=== PATIENT | female | born 1995 | race Caucasian/White ===

== ENCOUNTER → 2018-01-18 14:33 | Outpatient (CLI) | payer MEDICAID, SELFPAY ==
[2018-01-18 14:50] LABS: Add Manual Diff / Slide Review NO; Basophils Percent Auto 0.9 % (0-2); Eosinophils Percent Auto 6.2 % (2-4); Hematocrit 39.3 % (36-46); Hemoglobin 13.6 g/dL (12.0-16.0); Lymphocytes Percent Auto 26.1 % (25-40); Mean Corpuscular HGB Conc 34.7 % (30-36); Mean Corpuscular Hemoglobin 30.9 PG (26-34); Mean Corpuscular Volume 89.2 fL (80-100); Monocytes Percent Auto 7.3 % (3-14); Neutrophils Absolute Auto 8400 /uL (3000-5900); Neutrophils Percent Auto 59.5 % (50-75); Platelet Count 484 X10^3/uL (150-400); Red Cell Distribution Width 13.5 % (11.6-14.8); White Blood Cell Count 14.2 X10^3/uL (4.5-11.0)
[2018-01-18 14:53] LABS: Pregnancy Test Urine Negative (Negative)
[2018-01-18 15:24] LABS: Alanine Aminotransferase 31 IU/L (9-52); Albumin 4.4 g/dL (3.5-5.0); Albumin Globulin Ratio 1.4 (1.0-2.8); Alkaline Phosphatase 70 U/L (38-126); Aspartate Aminotransferase 24 IU/L (14-36); BUN Creatinine Ratio 18.6 (6-22); Bilirubin Total 0.2 mg/dL (0.2-1.3); Blood Urea Nitrogen 13 mg/dL (7-17); Calcium 9.7 mg/dL (8.4-10.2); Carbon Dioxide 28 mmol/L (22-32); Chloride 101 mmol/L (98-107); Cholesterol 202 mg/dL (140-199); Estimated Glomerular Filt Rate > 60.0 mL/min (>60); Globulin 3.1 g/dL (1.7-4.1); Glucose 89 mg/dL (70-100); HDL Cholesterol 62 mg/dL (40-60); HEMOLYSIS 16 (0-50); LDL Cholesterol Calculated 64 mg/dL (<100); Potassium 4.6 mmol/L (3.4-5.1); Sodium 143 mmol/L (137-145); Total Protein 7.5 g/dL (6.3-8.2); Triglycerides 382 mg/dL (35-150)
[2018-01-18 15:56] LABS: Vitamin D 25 Hydroxy (D3) 14.3 ng/mL (30.0-100.0)
[2018-01-18 16:23] LABS: HIV 1 and 2 Antibody NEGATIVE (NEGATIVE)
== END ==
PROVIDERS: PCP Student in an Organized Health Care Education/Training Program; Visit Provider Student in an Organized Health Care Education/Training Program
DX: N91.2 Amenorrhea, unspecified (principal); F11.20 Opioid dependence, uncomplicated; F15.10 Other stimulant abuse, uncomplicated; R79.89 Other specified abnormal findings of blood chemistry; E55.9 Vitamin D deficiency, unspecified; Z13.220 Encounter for screening for lipoid disorders
CPT/HCPCS: 36415; 80053; 80061; 81025; 82306; 85025; 86703

== ENCOUNTER 2018-03-14 18:36 | Emergency (ER) | payer MEDICAID, SELFPAY ==
--- NOTE | 2018-03-14 18:44 | ED.NAVMDI ---
HPI - Nausea/Vomiting/Diarrhea <Cindi Galindo PA-C - Last Filed: 03/14/18 22:20> General Chief complaint: Nausea/Vomiting/Diarrhea Stated complaint: states severe stomach pain N/V/D Time Seen by Provider: 03/14/18 18:43 Source: patient Mode of arrival: ambulatory Limitations: no limitations History of Present Illness HPI Narrative: This 22-year-old female comes in due to abdominal pain and vomiting today. She states that the pain is all across her lower abdomen and for the last couple of hours she has also noted pain in her back, mainly the left flank. She states that she was feeling normal until this morning. She is able to keep down maybe a little bit of water today but no food, and she continues to have nausea. She vomited 4 or 5 times today. She has not had any diarrhea. She denies any fever, chills, or sweats. She denies any urinary symptoms at all. She denies any discharge or STD concerns. She denies any possibility of and is on OCP. She denies any drug use in the last 6 months. 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 Allergy to amoxicillin is noted. She states this was a long time ago and she believes she had hives, however has taken cephalexin/cephalosporins with no reaction Related Data Previous Rx's Medication Instructions Recorded norgestimate 0.25 mg-ethinyl 1 tab PO DAILY #168 tab 01/18/18 estradiol 35 mcg tablet Allergies Allergy/AdvReac Type Severity Reaction Status Date / Time amoxicillin [AMOXICILLIN] Allergy Unknown Verified 03/14/18 18:49 Review of Systems <Cindi Galindo PA-C - Last Filed: 03/14/18 22:20> Review of Systems ROS Unobtainable: All systems reviewed & are unremarkable except as noted in HPI and below PFSH <Cindi Galindo PA-C - Last Filed: 03/14/18 22:20> Comment: Patient reports no tobacco in the last 2 weeks Exam <MARCY Pennington Last Filed: 03/14/18 22:20> Narrative Exam Narrative: GENERAL APPEARANCE: Patient sitting comfortably, in no distress. HEENT: PERRL, EOMI, conjunctiva pink, no scleral icterus, normal oropharynx NECK: Supple LUNGS: Clear to auscultation bilaterally. HEART: Rate and rhythm regular, normal S1 and S2, no S3 or S4. ABDOMEN: Soft, nondistended, hypoactive bowel sounds present x 4 quadrants, no masses palpable, no hepatosplenomegaly. Tender throughout the upper quadrants bilaterally as well as the left flank. Minimal right CVAT. No inferior quadrant tenderness. No guarding or rebound EXTREMITIES: No edema, no calf tenderness DERMATOLOGIC: No jaundice or exanthem NEUROLOGIC: Alert and oriented with normal speech and coordination Initial Vital Signs Initial Vital Signs: Vital Signs Temperature 98.5 F 03/14/18 18:49 Pulse Rate 93 H 03/14/18 18:49 Respiratory Rate 17 03/14/18 18:49 Blood Pressure 139/70 03/14/18 18:49 Pulse Oximetry 100 03/14/18 18:49 <Gerardo Gil MD - Last Filed: 03/15/18 03:45> Initial Vital Signs Initial Vital Signs: Vital Signs Temperature 98.5 F 03/14/18 18:49 Pulse Rate 93 H 03/14/18 18:49 Respiratory Rate 17 03/14/18 18:49 Blood Pressure 139/70 03/14/18 18:49 Pulse Oximetry 100 03/14/18 18:49 Course <Cindi Galindo PA-C - Last Filed: 03/14/18 22:20> Additional Information: On initial exam patient has left flank tenderness and tenderness across the upper quadrants. Pain has changed significantly in location from what she describes at onset. Patient has markedly elevated lipase, amylase, LFTs are chronically elevated but more so tonight. Previously normal bilirubin >2. She has chronic leukocytosis. Pain is significantly improved and she has not had recurrent vomiting while in the department. I have reviewed her lab work and ultrasound findings including very dilated common bile duct at 9.8 mm, and he advises transfer to a center where ERCP is available. Orders Ordered: ED Orders 03/14/18 19:12 Amylase Stat Complete Blood Count AUTO DIFF Stat Comprehensive Metabolic Panel Stat Lipase Stat 03/14/18 19:54 US abdomen complete Stat Discontinued Medications Hydromorphone HCl (Dilaudid) 1 mg IV NOW ONE Stop: 03/14/18 19:56 Last Admin: 03/14/18 20:03 Dose: 1 mg Hydromorphone HCl (Dilaudid) 1 mg IV NOW ONE Stop: 03/14/18 21:13 Last Admin: 03/14/18 21:15 Dose: 1 mg Sodium Chloride (Normal Saline 0.9%) 1,000 mls @ 1,000 mls/hr IV BOLUS ONE Stop: 03/14/18 19:59 Last Infusion: 03/14/18 20:21 Dose: 1,000 mls/hr Admin: 03/14/18 19:12 Dose: 1,000 mls/hr Ceftriaxone Sodium 1,000 mg/ (Dextrose) 50 mls @ 100 mls/hr IV NOW ONE Stop: 03/14/18 19:34 Last Infusion: 03/14/18 21:10 Dose: 0 mls/hr Admin: 03/14/18 20:08 Dose: 100 mls/hr Cefotetan Disodium/Dextrose (Cefotan) 2 gm in 50 mls @ 100 mls/hr IV NOW ONE Stop: 03/14/18 22:26 Last Infusion: 03/14/18 23:03 Dose: 0 mls/hr Admin: 03/14/18 22:17 Dose: 100 mls/hr Sodium Chloride (Normal Saline 0.9%) 1,000 mls @ 100 mls/hr IV CONT DARIO Last Admin: 03/14/18 22:52 Dose: Lactated Ringer's (Lactated Ringers) 1,000 mls @ 150 mls/hr IV CONT DARIO Last Infusion: 03/14/18 23:09 Dose: 0 mls/hr Admin: 03/14/18 23:01 Dose: 150 mls/hr Ketorolac Tromethamine (Toradol) 30 mg IV NOW ONE Stop: 03/14/18 19:01 Last Admin: 03/14/18 19:12 Dose: 30 mg Ondansetron HCl (Zofran) 4 mg IV NOW ONE Stop: 03/14/18 19:01 Last Admin: 03/14/18 19:13 Dose: 4 mg Vital Signs - 8 hr 03/14/18 20:00 03/14/18 21:07 03/14/18 22:28 Temperature Pulse Rate 104 H 108 H 96 H Respiratory Rate 18 20 20 Blood Pressure [Left Arm] 137/66 110/88 138/65 Pulse Oximetry 98 97 98 03/14/18 23:06 Temperature 98.5 F Pulse Rate 72 Respiratory Rate 16 Blood Pressure [Left Arm] 121/66 Pulse Oximetry 98 <Gerardo Gil MD - Last Filed: 03/15/18 03:45> Orders Ordered: ED Orders 03/14/18 19:12 Amylase Stat Complete Blood Count AUTO DIFF Stat Comprehensive Metabolic Panel Stat Lipase Stat 03/14/18 19:54 US abdomen complete Stat Discontinued Medications Hydromorphone HCl (Dilaudid) 1 mg IV NOW ONE Stop: 03/14/18 19:56 Last Admin: 03/14/18 20:03 Dose: 1 mg Hydromorphone HCl (Dilaudid) 1 mg IV NOW ONE Stop: 03/14/18 21:13 Last Admin: 03/14/18 21:15 Dose: 1 mg Sodium Chloride (Normal Saline 0.9%) 1,000 mls @ 1,000 mls/hr IV BOLUS ONE Stop: 03/14/18 19:59 Last Infusion: 03/14/18 20:21 Dose: 1,000 mls/hr Admin: 03/14/18 19:12 Dose: 1,000 mls/hr Ceftriaxone Sodium 1,000 mg/ (Dextrose) 50 mls @ 100 mls/hr IV NOW ONE Stop: 03/14/18 19:34 Last Infusion: 03/14/18 21:10 Dose: 0 mls/hr Admin: 03/14/18 20:08 Dose: 100 mls/hr Cefotetan Disodium/Dextrose (Cefotan) 2 gm in 50 mls @ 100 mls/hr IV NOW ONE Stop: 03/14/18 22:26 Last Infusion: 03/14/18 23:03 Dose: 0 mls/hr Admin: 03/14/18 22:17 Dose: 100 mls/hr Sodium Chloride (Normal Saline 0.9%) 1,000 mls @ 100 mls/hr IV CONT DARIO Last Admin: 03/14/18 22:52 Dose: Lactated Ringer's (Lactated Ringers) 1,000 mls @ 150 mls/hr IV CONT DARIO Last Infusion: 03/14/18 23:09 Dose: 0 mls/hr Admin: 03/14/18 23:01 Dose: 150 mls/hr Ketorolac Tromethamine (Toradol) 30 mg IV NOW ONE Stop: 03/14/18 19:01 Last Admin: 03/14/18 19:12 Dose: 30 mg Ondansetron HCl (Zofran) 4 mg IV NOW ONE Stop: 03/14/18 19:01 Last Admin: 03/14/18 19:13 Dose: 4 mg Vital Signs - 8 hr 03/14/18 20:00 03/14/18 21:07 03/14/18 22:28 Temperature Pulse Rate 104 H 108 H 96 H Respiratory Rate 18 20 20 Blood Pressure [Left Arm] 137/66 110/88 138/65 Pulse Oximetry 98 97 98 03/14/18 23:06 Temperature 98.5 F Pulse Rate 72 Respiratory Rate 16 Blood Pressure [Left Arm] 121/66 Pulse Oximetry 98 MDM - Nausea/Vomiting/Diarrhea <Cindi Galindo PA-C - Last Filed: 03/14/18 22:20> Lab Data Attestation: I reviewed the patient's lab results. Result diagrams: 03/14/18 19:12 03/14/18 19:12 Lab Results 03/14/18 03/14/18 03/14/18 Range/Units 18:40 19:12 19:12 WBC 16.1 H (4.5-11.0) X10^3/uL RBC 4.91 (4.0-5.2) X10^6/uL Hgb 14.3 (12.0-16.0) g/dL Hct 43.7 (36-46) % MCV 89.0 (80-100) fL MCH 29.2 (26-34) PG MCHC 32.8 (30-36) % RDW 13.1 (11.6-14.8) % Plt Count 525 H (150-400) X10^3/uL Neut % (Auto) 77.8 H (50-75) % Lymph % (Auto) 15.6 L (25-40) % [place] % (Auto) 5.3 (3-14) % Eos % (Auto) 0.8 L (2-4) % Baso % (Auto) 0.5 (0-2) % Neut # (Auto) 71294 H (9247-0574) /uL Lymph # (Auto) 2500 (9805-5340) /uL [place] # (Auto) 800 (0-900) /uL Eos # (Auto) 100 (0-450) /uL Baso # (Auto) 100 (0-100) /uL Sodium (137-145) mmol/L Potassium (3.4-5.1) mmol/L Chloride (98-107) mmol/L Carbon Dioxide (22-32) mmol/L BUN (7-17) mg/dL Creatinine (0.52-1.04) mg/dL Estimated GFR (>60) mL/min BUN/Creatinine Ratio (6-22) Glucose (70-100) mg/dL Calcium (8.4-10.2) mg/dL Total Bilirubin (0.2-1.3) mg/dL AST (14-36) IU/L ALT (9-52) IU/L Alkaline Phosphatase (38-126) U/L Total Protein (6.3-8.2) g/dL Albumin (3.5-5.0) g/dL Globulin (1.7-4.1) g/dL Albumin/Globulin Ratio (1.0-2.8) Amylase (30-110) U/L Lipase 54288 H (23-300) U/L Urine RBC 1-5/hpf (0-5/HPF) Urine WBC >100/hpf H (0-5/HPF) Ur Squamous Epith Cells 10-30 /hpf H Amorphous Sediment 1+ Urine Bacteria Many (>30) H (None) Urine Mucus 1+ H (Negative) Ur Culture Indicated? Specimen cultured 03/14/18 03/14/18 Range/Units 19:12 19:12 WBC (4.5-11.0) X10^3/uL RBC (4.0-5.2) X10^6/uL Hgb (12.0-16.0) g/dL Hct (36-46) % MCV (80-100) fL MCH (26-34) PG MCHC (30-36) % RDW (11.6-14.8) % Plt Count (150-400) X10^3/uL Neut % (Auto) (50-75) % Lymph % (Auto) (25-40) % [place] % (Auto) (3-14) % Eos % (Auto) (2-4) % Baso % (Auto) (0-2) % Neut # (Auto) (0643-1314) /uL Lymph # (Auto) (1471-7751) /uL [place] # (Auto) (0-900) /uL Eos # (Auto) (0-450) /uL Baso # (Auto) (0-100) /uL Sodium 139 (137-145) mmol/L Potassium 4.5 (3.4-5.1) mmol/L Chloride 101 (98-107) mmol/L Carbon Dioxide 28 (22-32) mmol/L BUN 15 (7-17) mg/dL Creatinine 0.70 (0.52-1.04) mg/dL Estimated GFR > 60.0 (>60) mL/min BUN/Creatinine Ratio 21.4 (6-22) Glucose 113 H (70-100) mg/dL Calcium 10.1 (8.4-10.2) mg/dL Total Bilirubin 2.3 H (0.2-1.3) mg/dL AST 280 H (14-36) IU/L ALT 734 H (9-52) IU/L Alkaline Phosphatase 239 H (38-126) U/L Total Protein 8.3 H (6.3-8.2) g/dL Albumin 4.4 (3.5-5.0) g/dL Globulin 3.9 (1.7-4.1) g/dL Albumin/Globulin Ratio 1.1 (1.0-2.8) Amylase 7220 H (30-110) U/L Lipase (23-300) U/L Urine RBC (0-5/HPF) Urine WBC (0-5/HPF) Ur Squamous Epith Cells Amorphous Sediment Urine Bacteria (None) Urine Mucus (Negative) Ur Culture Indicated? Point of Care Testing Test Results Negative Urine Dip Bedside Urine Glucose Negative Bedside Urine Bilirubin +++ 4 Bedside Urine Ketone ++ 40 Urine Specific [place] 1.020 Bedside Urine Occult Blood + Bedside Urine pH 6.5 Bedside Urine Protein +++ 300 Bedside Urine Urobilinogen 2+ 4mg Bedside Urine Nitrite + Positive Bedside Urine Leukocytes +++ 500 Esterase Imaging Data US - abdomen: Radiologist's impression: [address] [address] Ultrasound Report Signed Patient: Jeanette Hunt [facility]#: [id number] : 1995Acct:[id number] Age/Sex: 22 / FDate of Service: 03/14/18 Loc: ED Accession Number: [id number] Procedure: US abdomen complete Ordering Provider: Cindi Galindo P.A-C PROCEDURE: US ABDOMEN COMPLETE INDICATIONS: ELEVATED LFTS; PAIN TECHNIQUE: Real-time scanning was performed of the abdominal and retroperitoneal organs, with image documentation. COMPARISON: None. FINDINGS: Liver: Liver is normal in size and homogeneous in echotexture. Gallbladder: The gallbladder wall measures 2.4 mm in thickness. Multiple mobile stones are present throughout the gallbladder. An 8 mm diameter gallstone is present in the gallbladder neck. No pericholecystic fluid. The patient endorses a sonographic Tavera sign. Biliary ducts: Intrahepatic bile ducts are non-dilated. Extrahepatic bile duct caliber measures 9.6 mm. Normal is 6-7 mm or less in diameter, or 10 mm or less post-cholecystectomy. Pancreas: The pancreas is poorly characterized. Spleen: Spleen is normal in size and homogeneous in echotexture. Kidneys: Kidneys are normal in size and echotexture. Right kidney measures 9.9 cm long; left kidney measures 10.5 cm long. No hydronephrosis or nephrolithiasis. No solid masses. Aorta: Visualized aorta is normal in caliber at less than 3 cm. Iliacs: Proximal common iliac arteries are normal in caliber at less than 2.5 cm. IVC: Intrahepatic inferior vena cava is patent. Miscellaneous: No free abdominal fluid. IMPRESSION: 2. Cholelithiasis. No gallbladder wall thickening or pericholecystic fluid to suggest acute cholecystitis. However the patient does endorse a sonographic Tavera's sign. 2. Mild dilatation of the common bile duct. Choledocholithiasis cannot be excluded. Please correlate clinically. If further characterization is warranted, and the patient can sustain a breath hold, MRCP may be helpful to further evaluate the bile duct. Dictated by: Dee Basilio M.D. on 03/14/2018 at 21:00 Approved by: Dee Basilio M.D. on 03/14/2018 at 21:02 <Gerardo Gil MD - Last Filed: 03/15/18 03:45> Lab Data Lab Results 03/14/18 03/14/18 03/14/18 Range/Units 18:40 19:12 19:12 WBC 16.1 H (4.5-11.0) X10^3/uL RBC 4.91 (4.0-5.2) X10^6/uL Hgb 14.3 (12.0-16.0) g/dL Hct 43.7 (36-46) % MCV 89.0 (80-100) fL MCH 29.2 (26-34) PG MCHC 32.8 (30-36) % RDW 13.1 (11.6-14.8) % Plt Count 525 H (150-400) X10^3/uL Neut % (Auto) 77.8 H (50-75) % Lymph % (Auto) 15.6 L (25-40) % [place] % (Auto) 5.3 (3-14) % Eos % (Auto) 0.8 L (2-4) % Baso % (Auto) 0.5 (0-2) % Neut # (Auto) 26723 H (1442-9225) /uL Lymph # (Auto) 2500 (5266-0736) /uL [place] # (Auto) 800 (0-900) /uL Eos # (Auto) 100 (0-450) /uL Baso # (Auto) 100 (0-100) /uL Sodium (137-145) mmol/L Potassium (3.4-5.1) mmol/L Chloride (98-107) mmol/L Carbon Dioxide (22-32) mmol/L BUN (7-17) mg/dL Creatinine (0.52-1.04) mg/dL Estimated GFR (>60) mL/min BUN/Creatinine Ratio (6-22) Glucose (70-100) mg/dL Calcium (8.4-10.2) mg/dL Total Bilirubin (0.2-1.3) mg/dL AST (14-36) IU/L ALT (9-52) IU/L Alkaline Phosphatase (38-126) U/L Total Protein (6.3-8.2) g/dL Albumin (3.5-5.0) g/dL Globulin (1.7-4.1) g/dL Albumin/Globulin Ratio (1.0-2.8) Amylase (30-110) U/L Lipase 53424 H (23-300) U/L Urine RBC 1-5/hpf (0-5/HPF) Urine WBC >100/hpf H (0-5/HPF) Ur Squamous Epith Cells 10-30 /hpf H Amorphous Sediment 1+ Urine Bacteria Many (>30) H (None) Urine Mucus 1+ H (Negative) Ur Culture Indicated? Specimen cultured 03/14/18 03/14/18 Range/Units 19:12 19:12 WBC (4.5-11.0) X10^3/uL RBC (4.0-5.2) X10^6/uL Hgb (12.0-16.0) g/dL Hct (36-46) % MCV (80-100) fL MCH (26-34) PG MCHC (30-36) % RDW (11.6-14.8) % Plt Count (150-400) X10^3/uL Neut % (Auto) (50-75) % Lymph % (Auto) (25-40) % [place] % (Auto) (3-14) % Eos % (Auto) (2-4) % Baso % (Auto) (0-2) % Neut # (Auto) (6894-4150) /uL Lymph # (Auto) (3308-1363) /uL [place] # (Auto) (0-900) /uL Eos # (Auto) (0-450) /uL Baso # (Auto) (0-100) /uL Sodium 139 (137-145) mmol/L Potassium 4.5 (3.4-5.1) mmol/L Chloride 101 (98-107) mmol/L Carbon Dioxide 28 (22-32) mmol/L BUN 15 (7-17) mg/dL Creatinine 0.70 (0.52-1.04) mg/dL Estimated GFR > 60.0 (>60) mL/min BUN/Creatinine Ratio 21.4 (6-22) Glucose 113 H (70-100) mg/dL Calcium 10.1 (8.4-10.2) mg/dL Total Bilirubin 2.3 H (0.2-1.3) mg/dL AST 280 H (14-36) IU/L ALT 734 H (9-52) IU/L Alkaline Phosphatase 239 H (38-126) U/L Total Protein 8.3 H (6.3-8.2) g/dL Albumin 4.4 (3.5-5.0) g/dL Globulin 3.9 (1.7-4.1) g/dL Albumin/Globulin Ratio 1.1 (1.0-2.8) Amylase 7220 H (30-110) U/L Lipase (23-300) U/L Urine RBC (0-5/HPF) Urine WBC (0-5/HPF) Ur Squamous Epith Cells Amorphous Sediment Urine Bacteria (None) Urine Mucus (Negative) Ur Culture Indicated? Point of Care Testing Test Results Negative Urine Dip Bedside Urine Glucose Negative Bedside Urine Bilirubin +++ 4 Bedside Urine Ketone ++ 40 Urine Specific [place] 1.020 Bedside Urine Occult Blood + Bedside Urine pH 6.5 Bedside Urine Protein +++ 300 Bedside Urine Urobilinogen 2+ 4mg Bedside Urine Nitrite + Positive Bedside Urine Leukocytes +++ 500 Esterase Discharge Plan Departure Patient Disposition: Admitted As Inpatient Clinical Impression: Acute appendicitis Discharge Date/Time: 03/14/18 23:12 Interventions: ED Discharge Assessment Last Done: 03/14/18 23:09 <Gerardo Gil MD - Last Filed: 03/15/18 03:45> Cosign ED Attending Cosignature Attestation: I agree with the PA evaluation. The patient was admitted to surgery for appendicitis.
[2018-03-14 18:49] VITALS: BP 139/70; PULSE 93; RESP 17; TEMP 36.9; O2SAT 100; BMI 34.9
--- NOTE | 2018-03-14 19:06 | ED_ITS ---
HPI - Nausea/Vomiting/Diarrhea <Cindi Galindo PA-C - Last Filed: 03/14/18 22:20> General Chief complaint: Nausea/Vomiting/Diarrhea Stated complaint: states severe stomach pain N/V/D Time Seen by Provider: 03/14/18 18:43 Source: patient Mode of arrival: ambulatory Limitations: no limitations History of Present Illness HPI Narrative: This 22-year-old female comes in due to abdominal pain and vomiting today. She states that the pain is all across her lower abdomen and for the last couple of hours she has also noted pain in her back, mainly the left flank. She states that she was feeling normal until this morning. She is able to keep down maybe a little bit of water today but no food, and she continues to have nausea. She vomited 4 or 5 times today. She has not had any diarrhea. She denies any fever, chills, or sweats. She denies any urinary symptoms at all. She denies any discharge or STD concerns. She denies any possibility of and is on OCP. She denies any drug use in the last 6 months. 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 Allergy to amoxicillin is noted. She states this was a long time ago and she believes she had hives, however has taken cephalexin/cephalosporins with no reaction Related Data Previous Rx's Medication Instructions Recorded norgestimate 0.25 mg-ethinyl 1 tab PO DAILY #168 tab 01/18/18 estradiol 35 mcg tablet Allergies Allergy/AdvReac Type Severity Reaction Status Date / Time amoxicillin [AMOXICILLIN] Allergy Unknown Verified 03/14/18 18:49 Review of Systems <Cindi Galindo PA-C - Last Filed: 03/14/18 22:20> Review of Systems ROS Unobtainable: All systems reviewed & are unremarkable except as noted in HPI and below PFSH <Cindi Galindo PA-C - Last Filed: 03/14/18 22:20> Comment: Patient reports no tobacco in the last 2 weeks Exam <MARCY Pennington Last Filed: 03/14/18 22:20> Narrative Exam Narrative: GENERAL APPEARANCE: Patient sitting comfortably, in no distress. HEENT: PERRL, EOMI, conjunctiva pink, no scleral icterus, normal oropharynx NECK: Supple LUNGS: Clear to auscultation bilaterally. HEART: Rate and rhythm regular, normal S1 and S2, no S3 or S4. ABDOMEN: Soft, nondistended, hypoactive bowel sounds present x 4 quadrants, no masses palpable, no hepatosplenomegaly. Tender throughout the upper quadrants bilaterally as well as the left flank. Minimal right CVAT. No inferior quadrant tenderness. No guarding or rebound EXTREMITIES: No edema, no calf tenderness DERMATOLOGIC: No jaundice or exanthem NEUROLOGIC: Alert and oriented with normal speech and coordination Initial Vital Signs Initial Vital Signs: Vital Signs Temperature 98.5 F 03/14/18 18:49 Pulse Rate 93 H 03/14/18 18:49 Respiratory Rate 17 03/14/18 18:49 Blood Pressure 139/70 03/14/18 18:49 Pulse Oximetry 100 03/14/18 18:49 <Gerardo Gil MD - Last Filed: 03/15/18 03:45> Initial Vital Signs Initial Vital Signs: Vital Signs Temperature 98.5 F 03/14/18 18:49 Pulse Rate 93 H 03/14/18 18:49 Respiratory Rate 17 03/14/18 18:49 Blood Pressure 139/70 03/14/18 18:49 Pulse Oximetry 100 03/14/18 18:49 Course <Cindi Galindo PA-C - Last Filed: 03/14/18 22:20> Additional Information: On initial exam patient has left flank tenderness and tenderness across the upper quadrants. Pain has changed significantly in location from what she describes at onset. Patient has markedly elevated lipase , amylase, LFTs are chronically elevated but more so tonight. Previously normal bilirubin >2. She has chronic leukocytosis. Pain is significantly improved and she has not had recurrent vomiting while in the department. I have reviewed her lab work and ultrasound findings including very dilated common bile duct at 9.8 mm, and he advises transfer to a center where ERCP is available. Orders Ordered: ED Orders 03/14/18 19:12 Amylase Stat Complete Blood Count AUTO DIFF Stat Comprehensive Metabolic Panel Stat Lipase Stat 03/14/18 19:54 US abdomen complete Stat Discontinued Medications Hydromorphone HCl (Dilaudid) 1 mg IV NOW ONE Stop: 03/14/18 19:56 Last Admin: 03/14/18 20:03 Dose: 1 mg Hydromorphone HCl (Dilaudid) 1 mg IV NOW ONE Stop: 03/14/18 21:13 Last Admin: 03/14/18 21:15 Dose: 1 mg Sodium Chloride (Normal Saline 0.9%) 1,000 mls @ 1,000 mls/hr IV BOLUS ONE Stop: 03/14/18 19:59 Last Infusion: 03/14/18 20:21 Dose: 1,000 mls/hr Admin: 03/14/18 19:12 Dose: 1,000 mls/hr Ceftriaxone Sodium 1,000 mg/ (Dextrose) 50 mls @ 100 mls/hr IV NOW ONE Stop: 03/14/18 19:34 Last Infusion: 03/14/18 21:10 Dose: 0 mls/hr Admin: 03/14/18 20:08 Dose: 100 mls/hr Cefotetan Disodium/Dextrose (Cefotan) 2 gm in 50 mls @ 100 mls/hr IV NOW ONE Stop: 03/14/18 22:26 Last Infusion: 03/14/18 23:03 Dose: 0 mls/hr Admin: 03/14/18 22:17 Dose: 100 mls/hr Sodium Chloride (Normal Saline 0.9%) 1,000 mls @ 100 mls/hr IV CONT DARIO Last Admin: 03/14/18 22:52 Dose: Lactated Ringer's (Lactated Ringers) 1,000 mls @ 150 mls/hr IV CONT DARIO Last Infusion: 03/14/18 23:09 Dose: 0 mls/hr Admin: 03/14/18 23:01 Dose: 150 mls/hr Ketorolac Tromethamine (Toradol) 30 mg IV NOW ONE Stop: 03/14/18 19:01 Last Admin: 03/14/18 19:12 Dose: 30 mg Ondansetron HCl (Zofran) 4 mg IV NOW ONE Stop: 03/14/18 19:01 Last Admin: 03/14/18 19:13 Dose: 4 mg Vital Signs - 8 hr 03/14/18 20:00 03/14/18 21:07 03/14/18 22:28 Temperature Pulse Rate 104 H 108 H 96 H Respiratory Rate 18 20 20 Blood Pressure [Left Arm] 137/66 110/88 138/65 Pulse Oximetry 98 97 98 03/14/18 23:06 Temperature 98.5 F Pulse Rate 72 Respiratory Rate 16 Blood Pressure [Left Arm] 121/66 Pulse Oximetry 98 <Gerardo Gil MD - Last Filed: 03/15/18 03:45> Orders Ordered: ED Orders 03/14/18 19:12 Amylase Stat Complete Blood Count AUTO DIFF Stat Comprehensive Metabolic Panel Stat Lipase Stat 03/14/18 19:54 US abdomen complete Stat Discontinued Medications Hydromorphone HCl (Dilaudid) 1 mg IV NOW ONE Stop: 03/14/18 19:56 Last Admin: 03/14/18 20:03 Dose: 1 mg Hydromorphone HCl (Dilaudid) 1 mg IV NOW ONE Stop: 03/14/18 21:13 Last Admin: 03/14/18 21:15 Dose: 1 mg Sodium Chloride (Normal Saline 0.9%) 1,000 mls @ 1,000 mls/hr IV BOLUS ONE Stop: 03/14/18 19:59 Last Infusion: 03/14/18 20:21 Dose: 1,000 mls/hr Admin: 03/14/18 19:12 Dose: 1,000 mls/hr Ceftriaxone Sodium 1,000 mg/ (Dextrose) 50 mls @ 100 mls/hr IV NOW ONE Stop: 03/14/18 19:34 Last Infusion: 03/14/18 21:10 Dose: 0 mls/hr Admin: 03/14/18 20:08 Dose: 100 mls/hr Cefotetan Disodium/Dextrose (Cefotan) 2 gm in 50 mls @ 100 mls/hr IV NOW ONE Stop: 03/14/18 22:26 Last Infusion: 03/14/18 23:03 Dose: 0 mls/hr Admin: 03/14/18 22:17 Dose: 100 mls/hr Sodium Chloride (Normal Saline 0.9%) 1,000 mls @ 100 mls/hr IV CONT DARIO Last Admin: 03/14/18 22:52 Dose: Lactated Ringer's (Lactated Ringers) 1,000 mls @ 150 mls/hr IV CONT DARIO Last Infusion: 03/14/18 23:09 Dose: 0 mls/hr Admin: 03/14/18 23:01 Dose: 150 mls/hr Ketorolac Tromethamine (Toradol) 30 mg IV NOW ONE Stop: 03/14/18 19:01 Last Admin: 03/14/18 19:12 Dose: 30 mg Ondansetron HCl (Zofran) 4 mg IV NOW ONE Stop: 03/14/18 19:01 Last Admin: 03/14/18 19:13 Dose: 4 mg Vital Signs - 8 hr 03/14/18 20:00 03/14/18 21:07 03/14/18 22:28 Temperature Pulse Rate 104 H 108 H 96 H Respiratory Rate 18 20 20 Blood Pressure [Left Arm] 137/66 110/88 138/65 Pulse Oximetry 98 97 98 03/14/18 23:06 Temperature 98.5 F Pulse Rate 72 Respiratory Rate 16 Blood Pressure [Left Arm] 121/66 Pulse Oximetry 98 MDM - Nausea/Vomiting/Diarrhea <Cindi Galindo PA-C - Last Filed: 03/14/18 22:20> Lab Data Attestation: I reviewed the patient's lab results. Result diagrams: 03/14/18 19:12 03/14/18 19:12 Lab Results 03/14/18 03/14/18 03/14/18 Range/Units 18:40 19:12 19:12 WBC 16.1 H (4.5-11.0) X10^3/uL RBC 4.91 (4.0-5.2) X10^6/uL Hgb 14.3 (12.0-16.0) g/dL Hct 43.7 (36-46) % MCV 89.0 (80-100) fL MCH 29.2 (26-34) PG MCHC 32.8 (30-36) % RDW 13.1 (11.6-14.8) % Plt Count 525 H (150-400) X10^3/uL Neut % (Auto) 77.8 H (50-75) % Lymph % (Auto) 15.6 L (25-40) % [place] % (Auto) 5.3 (3-14) % Eos % (Auto) 0.8 L (2-4) % Baso % (Auto) 0.5 (0-2) % Neut # (Auto) 76554 H (9295-5217) /uL Lymph # (Auto) 2500 (7392-6570) /uL [place] # (Auto) 800 (0-900) /uL Eos # (Auto) 100 (0-450) /uL Baso # (Auto) 100 (0-100) /uL Sodium (137-145) mmol/L Potassium (3.4-5.1) mmol/L Chloride (98-107) mmol/L Carbon Dioxide (22-32) mmol/L BUN (7-17) mg/dL Creatinine (0.52-1.04) mg/dL Estimated GFR (>60) mL/min BUN/Creatinine Ratio (6-22) Glucose (70-100) mg/dL Calcium (8.4-10.2) mg/dL Total Bilirubin (0.2-1.3) mg/dL AST (14-36) IU/L ALT (9-52) IU/L Alkaline Phosphatase (38-126) U/L Total Protein (6.3-8.2) g/dL Albumin (3.5-5.0) g/dL Globulin (1.7-4.1) g/dL Albumin/Globulin Ratio (1.0-2.8) Amylase (30-110) U/L Lipase 46227 H (23-300) U/L Urine RBC 1-5/hpf (0-5/HPF) Urine WBC >100/hpf H (0-5/HPF) Ur Squamous Epith Cells 10-30 /hpf H Amorphous Sediment 1+ Urine Bacteria Many (>30) H (None) Urine Mucus 1+ H (Negative) Ur Culture Indicated? Specimen cultured 03/14/18 03/14/18 Range/Units 19:12 19:12 WBC (4.5-11.0) X10^3/uL RBC (4.0-5.2) X10^6/uL Hgb (12.0-16.0) g/dL Hct (36-46) % MCV (80-100) fL MCH (26-34) PG MCHC (30-36) % RDW (11.6-14.8) % Plt Count (150-400) X10^3/uL Neut % (Auto) (50-75) % Lymph % (Auto) (25-40) % [place] % (Auto) (3-14) % Eos % (Auto) (2-4) % Baso % (Auto) (0-2) % Neut # (Auto) (7510-8944) /uL Lymph # (Auto) (7754-0807) /uL [place] # (Auto) (0-900) /uL Eos # (Auto) (0-450) /uL Baso # (Auto) (0-100) /uL Sodium 139 (137-145) mmol/L Potassium 4.5 (3.4-5.1) mmol/L Chloride 101 (98-107) mmol/L Carbon Dioxide 28 (22-32) mmol/L BUN 15 (7-17) mg/dL Creatinine 0.70 (0.52-1.04) mg/dL Estimated GFR > 60.0 (>60) mL/min BUN/Creatinine Ratio 21.4 (6-22) Glucose 113 H (70-100) mg/dL Calcium 10.1 (8.4-10.2) mg/dL Total Bilirubin 2.3 H (0.2-1.3) mg/dL AST 280 H (14-36) IU/L ALT 734 H (9-52) IU/L Alkaline Phosphatase 239 H (38-126) U/L Total Protein 8.3 H (6.3-8.2) g/dL Albumin 4.4 (3.5-5.0) g/dL Globulin 3.9 (1.7-4.1) g/dL Albumin/Globulin Ratio 1.1 (1.0-2.8) Amylase 7220 H (30-110) U/L Lipase (23-300) U/L Urine RBC (0-5/HPF) Urine WBC (0-5/HPF) Ur Squamous Epith Cells Amorphous Sediment Urine Bacteria (None) Urine Mucus (Negative) Ur Culture Indicated? Point of Care Testing Test Results Negative Urine Dip Bedside Urine Glucose Negative Bedside Urine Bilirubin +++ 4 Bedside Urine Ketone ++ 40 Urine Specific [place] 1.020 Bedside Urine Occult Blood + Bedside Urine pH 6.5 Bedside Urine Protein +++ 300 Bedside Urine Urobilinogen 2+ 4mg Bedside Urine Nitrite + Positive Bedside Urine Leukocytes +++ 500 Esterase Imaging Data US - abdomen: Radiologist's impression: [address] [address] Ultrasound Report Signed Patient: Jeanette Hunt [facility]#: [id number] : 1995Acct:[id number] Age/Sex: 22 / FDate of Service: 03/14/18 Loc: ED Accession Number: [id number] Procedure: US abdomen complete Ordering Provider: Cindi Galindo P.A-C PROCEDURE: US ABDOMEN COMPLETE INDICATIONS: ELEVATED LFTS; PAIN TECHNIQUE: Real-time scanning was performed of the abdominal and retroperitoneal organs, with image documentation. COMPARISON: None. FINDINGS: Liver: Liver is normal in size and homogeneous in echotexture. Gallbladder: The gallbladder wall measures 2.4 mm in thickness. Multiple mobile stones are present throughout the gallbladder. An 8 mm diameter gallstone is present in the gallbladder neck. No pericholecystic fluid. The patient endorses a sonographic Tavera sign. Biliary ducts: Intrahepatic bile ducts are non-dilated. Extrahepatic bile duct caliber measures 9.6 mm. Normal is 6-7 mm or less in diameter, or 10 mm or less post-cholecystectomy. Pancreas: The pancreas is poorly characterized. Spleen: Spleen is normal in size and homogeneous in echotexture. Kidneys: Kidneys are normal in size and echotexture. Right kidney measures 9.9 cm long; left kidney measures 10.5 cm long. No hydronephrosis or nephrolithiasis. No solid masses. Aorta: Visualized aorta is normal in caliber at less than 3 cm. Iliacs: Proximal common iliac arteries are normal in caliber at less than 2.5 cm. IVC: Intrahepatic inferior vena cava is patent. Miscellaneous: No free abdominal fluid. IMPRESSION: 2. Cholelithiasis. No gallbladder wall thickening or pericholecystic fluid to suggest acute cholecystitis. However the patient does endorse a sonographic Tavera's sign. 2. Mild dilatation of the common bile duct. Choledocholithiasis cannot be excluded. Please correlate clinically. If further characterization is warranted, and the patient can sustain a breath hold, MRCP may be helpful to further evaluate the bile duct. Dictated by: Dee Basilio M.D. on 03/14/2018 at 21:00 Approved by: Dee Basilio M.D. on 03/14/2018 at 21:02 <Gerardo Gil MD - Last Filed: 03/15/18 03:45> Lab Data Lab Results 03/14/18 03/14/18 03/14/18 Range/Units 18:40 19:12 19:12 WBC 16.1 H (4.5-11.0) X10^3/uL RBC 4.91 (4.0-5.2) X10^6/uL Hgb 14.3 (12.0-16.0) g/dL Hct 43.7 (36-46) % MCV 89.0 (80-100) fL MCH 29.2 (26-34) PG MCHC 32.8 (30-36) % RDW 13.1 (11.6-14.8) % Plt Count 525 H (150-400) X10^3/uL Neut % (Auto) 77.8 H (50-75) % Lymph % (Auto) 15.6 L (25-40) % [place] % (Auto) 5.3 (3-14) % Eos % (Auto) 0.8 L (2-4) % Baso % (Auto) 0.5 (0-2) % Neut # (Auto) 58433 H (0696-8975) /uL Lymph # (Auto) 2500 (9950-0365) /uL [place] # (Auto) 800 (0-900) /uL Eos # (Auto) 100 (0-450) /uL Baso # (Auto) 100 (0-100) /uL Sodium (137-145) mmol/L Potassium (3.4-5.1) mmol/L Chloride (98-107) mmol/L Carbon Dioxide (22-32) mmol/L BUN (7-17) mg/dL Creatinine (0.52-1.04) mg/dL Estimated GFR (>60) mL/min BUN/Creatinine Ratio (6-22) Glucose (70-100) mg/dL Calcium (8.4-10.2) mg/dL Total Bilirubin (0.2-1.3) mg/dL AST (14-36) IU/L ALT (9-52) IU/L Alkaline Phosphatase (38-126) U/L Total Protein (6.3-8.2) g/dL Albumin (3.5-5.0) g/dL Globulin (1.7-4.1) g/dL Albumin/Globulin Ratio (1.0-2.8) Amylase (30-110) U/L Lipase 51111 H (23-300) U/L Urine RBC 1-5/hpf (0-5/HPF) Urine WBC >100/hpf H (0-5/HPF) Ur Squamous Epith Cells 10-30 /hpf H Amorphous Sediment 1+ Urine Bacteria Many (>30) H (None) Urine Mucus 1+ H (Negative) Ur Culture Indicated? Specimen cultured 03/14/18 03/14/18 Range/Units 19:12 19:12 WBC (4.5-11.0) X10^3/uL RBC (4.0-5.2) X10^6/uL Hgb (12.0-16.0) g/dL Hct (36-46) % MCV (80-100) fL MCH (26-34) PG MCHC (30-36) % RDW (11.6-14.8) % Plt Count (150-400) X10^3/uL Neut % (Auto) (50-75) % Lymph % (Auto) (25-40) % [place] % (Auto) (3-14) % Eos % (Auto) (2-4) % Baso % (Auto) (0-2) % Neut # (Auto) (9343-0940) /uL Lymph # (Auto) (0989-3458) /uL [place] # (Auto) (0-900) /uL Eos # (Auto) (0-450) /uL Baso # (Auto) (0-100) /uL Sodium 139 (137-145) mmol/L Potassium 4.5 (3.4-5.1) mmol/L Chloride 101 (98-107) mmol/L Carbon Dioxide 28 (22-32) mmol/L BUN 15 (7-17) mg/dL Creatinine 0.70 (0.52-1.04) mg/dL Estimated GFR > 60.0 (>60) mL/min BUN/Creatinine Ratio 21.4 (6-22) Glucose 113 H (70-100) mg/dL Calcium 10.1 (8.4-10.2) mg/dL Total Bilirubin 2.3 H (0.2-1.3) mg/dL AST 280 H (14-36) IU/L ALT 734 H (9-52) IU/L Alkaline Phosphatase 239 H (38-126) U/L Total Protein 8.3 H (6.3-8.2) g/dL Albumin 4.4 (3.5-5.0) g/dL Globulin 3.9 (1.7-4.1) g/dL Albumin/Globulin Ratio 1.1 (1.0-2.8) Amylase 7220 H (30-110) U/L Lipase (23-300) U/L Urine RBC (0-5/HPF) Urine WBC (0-5/HPF) Ur Squamous Epith Cells Amorphous Sediment Urine Bacteria (None) Urine Mucus (Negative) Ur Culture Indicated? Point of Care Testing Test Results Negative Urine Dip Bedside Urine Glucose Negative Bedside Urine Bilirubin +++ 4 Bedside Urine Ketone ++ 40 Urine Specific [place] 1.020 Bedside Urine Occult Blood + Bedside Urine pH 6.5 Bedside Urine Protein +++ 300 Bedside Urine Urobilinogen 2+ 4mg Bedside Urine Nitrite + Positive Bedside Urine Leukocytes +++ 500 Esterase Discharge Plan Departure Patient Disposition: Admitted As Inpatient Clinical Impression: Acute appendicitis Discharge Date/Time: 03/14/18 23:12 Interventions: ED Discharge Assessment Last Done: 03/14/18 23:09 <Gerardo Gil MD - Last Filed: 03/15/18 03:45> Cosign ED Attending Cosignature Attestation: I agree with the PA evaluation. The patient was admitted to surgery for appendicitis.
[2018-03-14] MEDS: KETOROLAC 60 MG/2 ML VIAL 30 MG IV (19:12)
[2018-03-14] MEDS: SODIUM CHLORIDE 0.9% 1,000 ML 1000 ML IV (19:12)
[2018-03-14] MEDS: ONDANSETRON 4 MG/2 ML INJ IV (19:13)
[2018-03-14 19:21] LABS: Add Manual Diff / Slide Review NO; Basophils Absolute Auto 100 /uL (0-100); Basophils Percent Auto 0.5 % (0-2); Eosinophils Absolute Auto 100 /uL (0-450); Eosinophils Percent Auto 0.8 % (2-4); Hematocrit 43.7 % (36-46); Hemoglobin 14.3 g/dL (12.0-16.0); Lymphocytes Absolute Auto 2500 /uL (1100-4500); Lymphocytes Percent Auto 15.6 % (25-40); Mean Corpuscular HGB Conc 32.8 % (30-36); Mean Corpuscular Hemoglobin 29.2 PG (26-34); Monocytes Absolute Auto 800 /uL (0-900); Monocytes Percent Auto 5.3 % (3-14); Neutrophils Absolute Auto 12500 /uL (1500-7000); Neutrophils Percent Auto 77.8 % (50-75); Platelet Count 525 X10^3/uL (150-400); Red Blood Cell Count 4.91 X10^6/uL (4.0-5.2); Red Cell Distribution Width 13.1 % (11.6-14.8); White Blood Cell Count 16.1 X10^3/uL (4.5-11.0)
[2018-03-14 19:22] LABS: Amorphous Sediment Urine 1+; Bacteria Urine Many (>30); Culture Indicated Urine Specimen Cultured; Mucus Urine 1+ (Negative); RBC Urine 1-5/HPF (0-5/HPF); Squamous Epithelial Cell Urine 10-30 /HPF; WBC Urine >100/HPF (0-5/HPF)
[2018-03-14 19:37] LABS: Alanine Aminotransferase 734 IU/L (9-52); Albumin 4.4 g/dL (3.5-5.0); Albumin Globulin Ratio 1.1 (1.0-2.8); Alkaline Phosphatase 239 U/L (38-126); Aspartate Aminotransferase 280 IU/L (14-36); BUN Creatinine Ratio 21.4 (6-22); Bilirubin Total 2.3 mg/dL (0.2-1.3); Blood Urea Nitrogen 15 mg/dL (7-17); Calcium 10.1 mg/dL (8.4-10.2); Carbon Dioxide 28 mmol/L (22-32); Chloride 101 mmol/L (98-107); Estimated Glomerular Filt Rate > 60.0 mL/min (>60); Globulin 3.9 g/dL (1.7-4.1); Glucose 113 mg/dL (70-100); HEMOLYSIS 15 (0-50); Potassium 4.5 mmol/L (3.4-5.1); Sodium 139 mmol/L (137-145); Total Protein 8.3 g/dL (6.3-8.2)
--- NOTE | 2018-03-14 19:54 | DI.US.S_ITS ---
PROCEDURE: US ABDOMEN COMPLETE INDICATIONS: ELEVATED LFTS; PAIN TECHNIQUE: Real-time scanning was performed of the abdominal and retroperitoneal organs, with image documentation. COMPARISON: None. FINDINGS: Liver: Liver is normal in size and homogeneous in echotexture. Gallbladder: The gallbladder wall measures 2.4 mm in thickness. Multiple mobile stones are present throughout the gallbladder. An 8 mm diameter gallstone is present in the gallbladder neck. No pericholecystic fluid. The patient endorses a sonographic Tavera sign. Biliary ducts: Intrahepatic bile ducts are non-dilated. Extrahepatic bile duct caliber measures 9.6 mm. Normal is 6-7 mm or less in diameter, or 10 mm or less post-cholecystectomy. Pancreas: The pancreas is poorly characterized. Spleen: Spleen is normal in size and homogeneous in echotexture. Kidneys: Kidneys are normal in size and echotexture. Right kidney measures 9.9 cm long; left kidney measures 10.5 cm long. No hydronephrosis or nephrolithiasis. No solid masses. Aorta: Visualized aorta is normal in caliber at less than 3 cm. Iliacs: Proximal common iliac arteries are normal in caliber at less than 2.5 cm. IVC: Intrahepatic inferior vena cava is patent. Miscellaneous: No free abdominal fluid. IMPRESSION: 2. Cholelithiasis. No gallbladder wall thickening or pericholecystic fluid to suggest acute cholecystitis. However the patient does endorse a sonographic Tavera's sign. 2. Mild dilatation of the common bile duct. Choledocholithiasis cannot be excluded. Please correlate clinically. If further characterization is warranted, and the patient can sustain a breath hold, MRCP may be helpful to further evaluate the bile duct. Dictated by: Dee Basilio M.D. on 03/14/2018 at 21:00 Approved by: Dee Basilio M.D. on 03/14/2018 at 21:02
[2018-03-14 20:00] VITALS: BP 137/66; PULSE 104; RESP 18; O2SAT 98
[2018-03-14] MEDS: HYDROMORPHONE 1 MG INJ IV ×2 (20:03→21:15)
[2018-03-14] MEDS: cefTRIAXone 1,000 MG in DEXTROSE 5 % IN WATER 50 ML 100 ML IV (20:08)
[2018-03-14 20:18] LABS: Lipase 65014 U/L (23-300)
[2018-03-14 20:28] LABS: Amylase 7220 U/L (30-110)
[2018-03-14 21:07] VITALS: BP 110/88; PULSE 108; RESP 20; O2SAT 97
[2018-03-14] MEDS: CEFOTETAN 2 GM/50 ML PIGGYBACK IV (22:17)
[2018-03-14 22:28] VITALS: BP 138/65; PULSE 96; RESP 20; O2SAT 98
[2018-03-14] MEDS: LACTATED RINGERS 1,000 ML 150 ML IV (23:01)
[2018-03-14 23:06] VITALS: BP 121/66; PULSE 72; RESP 16; TEMP 36.9; O2SAT 98
== END 2018-03-14 23:12 | disposition admitted as inpatient to this hospital (09) ==
PROVIDERS: Emergency Provider Internal Medicine; Family Provider Family Medicine; PCP Student in an Organized Health Care Education/Training Program
DX: K35.80 Unspecified acute appendicitis (principal)
CPT/HCPCS: 76700; 80053; 81003; 81015; 81025; 82150; 83690; 85025; 87086; 96361; 96365; 96367; 96375; 96376; 99284; J0696; J1170; J1885; J2405

== ENCOUNTER → 2019-01-29 11:29 | Outpatient (CLI) | payer OTHER, MEDICAID, SELFPAY | PROVIDERS: Family Provider Family Medicine; PCP Student in an Organized Health Care Education/Training Program; Visit Provider Family Medicine | DX: J02.9 Acute pharyngitis, unspecified (principal) | CPT/HCPCS: 87070 ==

== ENCOUNTER → 2020-02-26 09:51 | Outpatient (CLI) | payer OTHER, MEDICAID, SELFPAY ==
[2020-02-26 11:37] LABS: Hemoglobin A1C% w Est Avg Glu 5.5 % (4.0-6.0)
== END ==
PROVIDERS: Family Provider Family Medicine; PCP Student in an Organized Health Care Education/Training Program; Referring Provider Student in an Organized Health Care Education/Training Program; Visit Provider Student in an Organized Health Care Education/Training Program
DX: E78.1 Pure hyperglyceridemia (principal)
CPT/HCPCS: 36415; 83036

== ENCOUNTER 2020-05-30 16:48 | Emergency (ER) | payer OTHER, MEDICAID, SELFPAY ==
[2020-05-30 17:24] VITALS: BP 139/76; PULSE 103; RESP 20; TEMP 36.4; O2SAT 98; BMI 40.6
[2020-05-30] MEDS: TET,DIPH,PERTUSS(ACELL),VAC/PF 0.5 ML SYRINGE IM (17:30)
[2020-05-30] MEDS: LIDO 1%/SOD BICARB 8.4% (10ML) 10 ML SYRINGE INJ (17:32)
[2020-05-30 18:05] VITALS: BP 132/72; PULSE 88; RESP 18; O2SAT 97
--- NOTE | 2020-05-30 18:11 | ED_ITS ---
HPI - Wound/Laceration General Chief Complaint: Wound/Laceration Stated Complaint: cut right hand from glass Time Seen by Provider: 05/30/20 16:52 Source: patient Mode of arrival: Family Vehicle Limitations: no limitations History of Present Illness HPI narrative: 24-year-old female smoker with history of illicit drug use presents with a chief complaint of a laceration on her right hand suffered when she accidentally grabbed a piece of broken glass. She has bleeding and some pain and has some numbness to lateral hand. Her tetanus is not current. She denies other injury and is otherwise well and free of complaint Onset (ago): minute(s) Extremity Location: Left: hand Place: outdoors Patient tetanus UTD: No Context: accidental Associated symptoms: none Treatments prior to arrival: bandage Related Data Home Medications Medication Instructions Recorded Confirmed etonogestrel 68 mg subdermal SUBDERMAL 01/29/19 01/29/19 implant Allergies Allergy/AdvReac Type Severity Reaction Status Date / Time amoxicillin [AMOXICILLIN] Allergy Unknown Verified 05/30/20 17:24 Review of Systems Constitutional Constitutional: Denies chills, Denies fever(s), Denies lethargy and Denies weakness ENT Ears, Nose, Mouth, and Throat: Denies change in voice, Denies neck pain and Denies sore throat Cardiovascular Cardiovascular: Denies chest pain, Denies irregular heart rhythm, Denies lightheadedness, Denies palpitations, Denies dyspnea, Denies dyspnea on exertion and Denies orthopnea Respiratory Respiratory: Denies cough, Denies dyspnea, Denies dyspnea on exertion and Denies wheezing Musculoskeletal Musculoskeletal: Denies neck pain Integumentary/Breasts Skin/Breast: Reports wounds Neurologic Neurologic: Reports paresthesias and Denies weakness Endocrine Endocrine: Denies palpitations Allergic/Immunologic Allergic/Immunologic: Denies wheezing Patient History Medical History Anxiety (11/10/14) Elevated LFTs High risk sexual behavior Hypertriglyceridemia without hypercholesterolemia Leukocytosis Methamphetamine abuse (11/09/15) Obesity (BMI 30-39.9) Opiate dependence, continuous (11/16/15) Vitamin D insufficiency Surgical History No pertinent past surgical history Family History Other Family history non-contributory Social History Smoking Status: Current every day smoker alcohol intake: current substance use type: does not use Smoking Status: Current every day smoker alcohol intake frequency: other Substance Use Type: does not use Exam Narrative Exam Narrative: GEN: AOx3 and in mild distress, anxious EYES: Pupils are equal, round, and reactive to light and accommodation. Extraoccular muscles are intact bilaterally. There is no subconjunctival hemorrhage or exudate. CHEST: Lungs are clear to auscultation bilaterally and free of wheezes, rales, or rhonchi. Heart rate is regular rhythm, there are no murmurs, clicks, rubs, or gallops. There is no chest wall tenderness. ABD: Abdomen is soft and nontender. There is no guarding or rebound. Bowel sounds are normal in all 4 quadrants. There is no mass or organomegaly. EXT: Full painless ROM of all extremities with no loss of sensation or strength. SKIN: 2 cm laceration on medial right hand at the base of the 5th finger. Viewed in a bloodless field and no tendon injury noted. Neuro exam demonstrates no current numbness, tingling or weakness otherwise Warm, pink, and dry. No erythema or rash Initial Vital Signs Initial Vital Signs: Vital Signs Temperature 97.5 F L 05/30/20 17:24 Pulse Rate 103 H 05/30/20 17:24 Respiratory Rate 20 05/30/20 17:24 Blood Pressure 139/76 05/30/20 17:24 Pulse Oximetry 98 05/30/20 17:24 Procedures Laceration Repair Laceration 1: Site: hand Side (If applicable): right Size (cm): 2 Description: linear Depth: simple, single layer Local Anesthetic: lidocaine 1% and with bicarb Amount of anesthesia used (mL): 3 Skin layer closed with: nylon Size (cm): 5-0 Number of sutures: 3 Technique: simple, interrupted Course Orders Ordered: Discontinued Medications Diphtheria/Tetanus/Acell Pertussis (Tet,Diph,Pertuss(Acell),Vac/Pf 0.5 Ml S yringe) 0.5 ml IM .ONCE ONE Stop: 05/30/20 17:12 Last Admin: 05/30/20 17:30 Dose: 0.5 ml Documented by: ALEX Lidocaine/Sodium Bicarbonate (Lido 1%/Sod Bicarb 8.4% (10ml) 10 Ml Syringe) 10 ml INJ NOW ONE Stop: 05/30/20 17:12 Last Admin: 05/30/20 17:32 Dose: 10 ml Documented by: ALEX Vital Signs Vital signs: Vital Signs - 8 hr 05/30/20 17:24 Temperature 97.5 F L Pulse Rate 103 H Respiratory Rate 20 Blood Pressure 139/76 Pulse Oximetry 98 Discharge Plan Departure Patient Disposition: Home Clinical Impression: Laceration Instructions: DI for Laceration Repair Activity Restrictions/Additional Instructions: *You have been diagnosed with [right hand laceration] *What to do: *Take medications as directed: Tylenol or Motrin for pain * Please keep the wound clean and dry to the best of your ability. Please monitor for signs of infection such as redness to the skin or increasing pain. Have the sutures removed by your doctor in about 7 days. If you are unable to get into your doctor, we would be happy to remove the sutures in that same timeframe. *Return to ER if you should have any new, worsening or concerning symptoms, such as [numbness, tingling, weakness, increasing swelling, redness, drainage or other] Prescriptions: No Action Nexplanon 68 mg implant subdermal RF: 0 Referrals: Eliecer Valencia MD [Primary Care Provider] -
== END 2020-05-30 18:22 | disposition home or self-care (01) ==
PROVIDERS: Emergency Provider Emergency Medicine; Family Provider Family Medicine; PCP Student in an Organized Health Care Education/Training Program
DX: S61.411A Laceration without foreign body of right hand, initial encounter (principal); W25.XXXA Contact with sharp glass, initial encounter; Z23 Encounter for immunization
CPT/HCPCS: 12001; 90471; 99283; 99284; 90715

== ENCOUNTER → 2020-06-24 15:14 | Outpatient (CLI) | payer OTHER, MEDICAID, SELFPAY ==
[2020-06-24] MEDS: COVID-19 VACC #1, MRNA(MOD) 100 MCG/0.5 ML VIAL IM (15:21)
== END ==
PROVIDERS: Family Provider Family Medicine; PCP Student in an Organized Health Care Education/Training Program; Visit Provider Internal Medicine
DX: Z23 Encounter for immunization (principal)
CPT/HCPCS: 0011A; 91301

== ENCOUNTER → 2020-07-30 15:47 | Outpatient (CLI) | payer OTHER, MEDICAID, SELFPAY ==
[2020-07-30] MEDS: COVID-19 VACC #2, MRNA(MOD) 100 MCG/0.5 ML VIAL IM (16:02)
== END ==
PROVIDERS: Family Provider Family Medicine; PCP Student in an Organized Health Care Education/Training Program; Visit Provider Internal Medicine
DX: Z23 Encounter for immunization (principal)
CPT/HCPCS: 0012A; 91301

== ENCOUNTER → 2020-10-13 12:15 | Outpatient (CLI) | payer OTHER, MEDICAID, SELFPAY ==
[2020-10-13 13:44] LABS: COVID19 -Nasal RAPID Negative (Negative)
== END ==
PROVIDERS: Family Provider Family Medicine; PCP Student in an Organized Health Care Education/Training Program; Visit Provider Physician Assistant
DX: Z20.822 Contact with and (suspected) exposure to COVID-19 (principal)
CPT/HCPCS: 87635

== ENCOUNTER 2020-10-14 20:24 | Emergency (ER) | payer OTHER, MEDICAID, SELFPAY ==
[2020-10-14 20:30] VITALS: BP 130/75; PULSE 87; RESP 14; TEMP 36.7; O2SAT 99; BMI 40.2
--- NOTE | 2020-10-14 20:39 | DI.RAD.S_ITS ---
PROCEDURE: XR SHOULDER RT MIN 2V INDICATIONS: pain, decreased ROM, history of dislocation, felt pop TECHNIQUE: Two views of the shoulder were acquired. COMPARISON: [facility], , SHOULDER 1 VIEW RIGHT, 05/19/2013, 19:15. FINDINGS: Bones: No fractures or dislocations. No suspicious bony lesions. Visualized ribs appear intact. Soft tissues: No suspicious soft tissue calcifications. IMPRESSION: Grossly normal glenohumeral joint alignment. Dictated by: Piper Neely M.D. on 10/14/2020 at 21:28 Approved by: Piper Neely M.D. on 10/14/2020 at 21:29
--- NOTE | 2020-10-14 21:34 | ED.UPPEXIN ---
HPI - Extremity Injury (Upper) General Chief Complaint: Extremity Injury, Upper Stated Complaint: dislocated shoulder, popped back in, cant move Time Seen by Provider: 10/14/20 20:34 Source: patient Mode of arrival: Ambulatory Limitations: no limitations History of Present Illness HPI narrative: 25-year-old female daily smoker with history of migraines and shoulder injuries presents with a chief complaint of right shoulder pain upon waking yesterday morning. She states that she fell sleep with her arm hanging off the bed. She denies any specific injury or trauma. She states that when her arm hangs down for quite some time she starts to get some tingling in her fingers but otherwise denies neurologic complaints. She states her pain is worse when she moves it and improves with rest. She denies fever or chills and is otherwise well and free of complaint Related Data Home Medications Medication Instructions Recorded Confirmed etonogestrel 68 mg subdermal SUBDERMAL 01/29/19 07/20/20 implant (Nexplanon) Previous Rx's Medication Instructions Recorded sumatriptan succinate 50 mg tablet See Rx Instructions PO .COMPLEX #9 07/20/20 tab terbinafine HCl 1 % topical cream 1 applic TOPICAL BID 14 Days #15 g 09/21/20 Allergies Allergy/AdvReac Type Severity Reaction Status Date / Time amoxicillin [AMOXICILLIN] Allergy Unknown Verified 10/14/20 20:33 Review of Systems Review of Systems Narrative: GENERAL: Denies chills, fatigue, malaise, fever, sweats. HEENT: Denies sinus pain, ear pain, sore throat, difficulty swallowing, dizziness. RESPIRATORY: Denies dyspnea, cough, wheezing, hemoptysis, sputum. CARDIOVASCULAR: Denies chest pain, palpitations, orthopnea, edema, GASTROINTESTINAL: Denies nausea, vomiting, abdominal pain, diarrhea, constipation, melena. : Denies dysuria, frequency, incontinence, hematuria, urinary retention. MUSCULOSKELETAL: See HPI SKIN: Denies rash, skin lesions, or other NEUROLOGIC: Denies weakness, headache, numbness, change in speech, confusion, seizures, incoordination. PSYCHIATRIC: No concerning psychosocial issues. 12 point review of systems is negative except for those stated above Patient History Medical History Anxiety (11/10/14) Elevated LFTs High risk sexual behavior Hypertriglyceridemia without hypercholesterolemia Leukocytosis Methamphetamine abuse (11/09/15) Obesity (BMI 30-39.9) Opiate dependence, continuous (11/16/15) Vitamin D insufficiency Surgical History No pertinent past surgical history Family History Other Family history non-contributory Social History Smoking Status: Current every day smoker alcohol intake: current substance use type: does not use Smoking Status: Current every day smoker alcohol intake frequency: other Substance Use Type: does not use Exam Narrative Exam Narrative: GEN: AOx3 and in mild distress EYES: Pupils are equal, round, and reactive to light and accommodation. Extraoccular muscles are intact bilaterally. There is no subconjunctival hemorrhage or exudate. CHEST: Lungs are clear to auscultation bilaterally and free of wheezes, rales, or rhonchi. Heart rate is regular rhythm, there are no murmurs, clicks, rubs, or gallops. There is no chest wall tenderness. ABD: Abdomen is soft and nontender. There is no guarding or rebound. Bowel sounds are normal in all 4 quadrants. There is no mass or organomegaly. EXT: Decreased range of motion secondary to pain at the right anterior shoulder, no obvious deformity, closed, isolated and neurovascularly intact SKIN: Warm, pink, and dry. No erythema or rash Initial Vital Signs Initial Vital Signs: Vital Signs Temperature 98.1 F 10/14/20 20:30 Pulse Rate 87 10/14/20 20:30 Respiratory Rate 14 10/14/20 20:30 Blood Pressure 130/75 10/14/20 20:30 Pulse Oximetry 99 10/14/20 20:30 Procedures Orthopedic Splinting/Casting Injury #1: Side: right Upper Extremity Injury Location: shoulder Upper Extremity Immobilizer: sling/shoulder immobilizer Post splinting neuro exam: intact Post splinting vascular exam: intact Placed by: Nursing Course Orders Ordered: ED Orders 10/14/20 20:39 XR shoulder RT min 2V Stat Discontinued Medications Hydrocodone Bitart/Acetaminophen (Hydrocodone/Acet 5/325 Prepack) 1 bottle MISC SEEINSTR ONE Stop: 10/14/20 21:33 Last Admin: 10/14/20 21:38 Dose: 1 bottle Documented by: LOC Vital Signs Vital signs: Vital Signs - 8 hr 10/14/20 20:30 10/14/20 21:46 Temperature 98.1 F Pulse Rate 87 78 Respiratory Rate 14 18 Blood Pressure 130/75 146/62 H Pulse Oximetry 99 99 MDM - Extremity Injury (Upper) Imaging Data Extremity x-ray #1: Radiologist's Impression: [address] [id number] ReportSigned Patient: Jeanette Hunt MMR#: [id number]: 1995Acct:[id number]/Sex: 25 / FDate of Service: 10/14/20Loc: EDAccession Number: [id number] Procedure: XR shoulder RT min 2V Ordering Provider: Sha Bazzi D.O. PROCEDURE: XR SHOULDER RT MIN 2V INDICATIONS: pain, decreased ROM, history of dislocation, felt pop TECHNIQUE: Two views of the shoulder were acquired. COMPARISON: [facility], SHOULDER 1 VIEW RIGHT, 05/19/2013, 19:15. FINDINGS: Bones: No fractures or dislocations. No suspicious bony lesions. Visualized ribs appear intact. Soft tissues: No suspicious soft tissue calcifications. IMPRESSION: Grossly normal glenohumeral joint alignment. Dictated by: Piper Neely M.D. on 10/14/2020 at 21:28 Approved by: Piper Neely M.D. on 10/14/2020 at 21:29 Discharge Plan Departure Patient Disposition: Home Clinical Impression: Obesity with body mass index (BMI) of 30.0 to 39.9 Acute shoulder pain Qualifiers: Laterality: right Qualified Code(s): M25.511 - Pain in right shoulder Instructions: DI for Shoulder Sprain Activity Restrictions/Additional Instructions: *You have been diagnosed with [right shoulder pain, physical exam and x-ray are very reassuring and there is no evidence of fracture or dislocation] *What to do: *Please continue to take your regular medications as directed. [ ] New medication prescriptions sent to your pharmacy: [ ] [ ] New medication written as a paper prescription [x ] No new medications given *Please follow up with your primary care provider in 2-3 days, call for an appointment. Let them know you were seen in the Emergency Department and that we ask that you be seen in follow up. We will electronically transmit a record of today's note if your PCP is in our system *If you do not have a primary care provider please contact the [facility] Resource line at [phone]. They will ask some questions about your medical history and help get you set up with a doctor in the community. *Return to Emergency Department if you should have any new, worsening or concerning symptoms, such as [fever greater than 101 F, shaking chills, worsening pain, persistent vomiting or other bothersome symptoms] Prescriptions: No Action terbinafine HCl 1 % cream 1 applic topical BID 14 Days Qty: 15 RF: 1 sumatriptan succinate 50 mg tablet See Rx Instructions PO .COMPLEX Qty: 9 RF: 0 Nexplanon 68 mg implant subdermal RF: 0 Referrals: Eliecer Valencia MD [Primary Care Provider] - Mg Covarrubias MD [Physician] -
[2020-10-14] MEDS: HYDROCODONE/ACET 5/325 PREPACK 1 BOTTLE MISC (21:38)
[2020-10-14 21:46] VITALS: BP 146/62; PULSE 78; RESP 18; O2SAT 99
== END 2020-10-14 21:47 | disposition home or self-care (01) ==
PROVIDERS: Emergency Provider Emergency Medicine; Family Provider Family Medicine; PCP Student in an Organized Health Care Education/Training Program
DX: M25.511 Pain in right shoulder (principal); E66.9 Obesity, unspecified; Z68.30 Body mass index [BMI] 30.0-30.9, adult
CPT/HCPCS: 73030; 99282; 99283

== ENCOUNTER → 2020-11-22 08:34 | Outpatient (CLI) | payer OTHER, MEDICAID, SELFPAY ==
[2020-11-22 09:43] LABS: COVID19 -Nasal RAPID Negative (Negative)
== END ==
PROVIDERS: Family Provider Family Medicine; PCP Student in an Organized Health Care Education/Training Program; Visit Provider Nurse Practitioner Family
DX: J02.9 Acute pharyngitis, unspecified (principal); R51.9 Headache, unspecified; Z20.822 Contact with and (suspected) exposure to COVID-19
CPT/HCPCS: 87070; 87147; 87635; 87880

== ENCOUNTER → 2021-08-16 08:47 | Outpatient (CLI) | payer OTHER, MEDICAID, SELFPAY ==
[2021-08-16 09:46] LABS: Add Manual Diff / Slide Review NO; Basophils Absolute Auto 100 /uL (0-100); Basophils Percent Auto 0.6 % (0-2); Eosinophils Absolute Auto 200 /uL (0-450); Eosinophils Percent Auto 1.7 % (2-4); Hematocrit 40.7 % (36-46); Hemoglobin 13.9 g/dL (12.0-16.0); Lymphocytes Absolute Auto 3100 /uL (1100-4500); Lymphocytes Percent Auto 30.8 % (25-40); Mean Corpuscular Hemoglobin 29.5 PG (26-34); Mean Corpuscular Volume 86.8 fL (80-100); Monocytes Absolute Auto 800 /uL (0-900); Monocytes Percent Auto 7.8 % (3-14); Neutrophils Absolute Auto 5900 /uL (1500-7000); Neutrophils Percent Auto 59.1 % (50-75); Platelet Count 413 X10^3/uL (150-400); Red Blood Cell Count 4.69 X10^6/uL (4.0-5.2); Red Cell Distribution Width 13.3 % (11.6-14.8); White Blood Cell Count 9.9 X10^3/uL (4.5-11.0)
[2021-08-16 09:58] LABS: Hemoglobin A1C% w Est Avg Glu 5.5 % (4.0-6.0)
[2021-08-16 10:25] LABS: BUN Creatinine Ratio 17.2 (6-22); Blood Urea Nitrogen 15 mg/dL (7-17); Calcium 8.8 mg/dL (8.4-10.2); Carbon Dioxide 24 mmol/L (22-32); Chloride 107 mmol/L (98-107); Cholesterol 182 mg/dL (140-199); Estimated Glomerular Filt Rate > 60 mL/min (>60); Glucose 98 mg/dL (70-100); HDL Cholesterol 52 mg/dL (40-60); HEMOLYSIS < 15 (0-50); LDL Cholesterol Calculated 108 mg/dL (<100); Potassium 4.2 mmol/L (3.4-5.1); Sodium 139 mmol/L (137-145); Triglycerides 109 mg/dL (35-150)
[2021-08-16 10:37] LABS: Free T3, Triiodothyronine Free 3.44 pg/mL (2.77-5.27); Free T4, Direct Thyroxine 1.04 ng/dL (0.78-2.19)
[2021-08-16 10:51] LABS: Thyroid Stimulating Hormone 1.11 uIU/mL (0.47-4.68)
[2021-08-19 17:22] LABS: Percent Free Testosterone 2.86 % (0.50-2.80); Testosterone Free 0.61 ng/dL (0.10-0.85); Testosterone Total 21.4 ng/dL (10.0-55.0)
[2021-08-23 14:15] LABS: 17 Hydroxycorticoste mg/g CRT 10.9 mg/gCR (2.0-6.5)
== END ==
PROVIDERS: Family Provider Family Medicine; PCP Family Medicine; Referring Provider Family Medicine; Visit Provider Family Medicine
DX: L68.0 Hirsutism (principal); N92.6 Irregular menstruation, unspecified; E66.9 Obesity, unspecified; E78.1 Pure hyperglyceridemia
CPT/HCPCS: 36415; 80048; 80061; 83036; 83491; 84146; 84402; 84403; 84439; 84443; 84481; 85025

== ENCOUNTER 2021-08-25 09:45 | Outpatient (RCR) | payer OTHER, MEDICAID, SELFPAY ==
--- NOTE | 2021-06-20 18:15 | PT.OIE ---
Current Diagnoses Other instability, unspecified shoulder (06/20/21) Abnormal posture (06/20/21) Weakness (06/20/21) Past Medical History (Last Updated 05/25/21 @ 09:11 by Sourav mSith DO) ADHD (attention deficit hyperactivity disorder), combined type Anxiety (11/10/14) Elevated LFTs High risk sexual behavior History of methamphetamine abuse History of opioid abuse Hx laparoscopic cholecystectomy Hypertriglyceridemia without hypercholesterolemia Leukocytosis No pertinent past surgical history Obesity (BMI 30-39.9) Seasonal allergies Vitamin D insufficiency Past Surgical History (Last Updated 03/04/21 @ 11:41 by Sourav Smith DO) Hx laparoscopic cholecystectomy No pertinent past surgical history Visit Care Team Role Provider Type Sourav Smith DO Family Provider Physician Primary Care Provider Specialty: Family Practice Address: [address] [place] [address], [id number] Email: Thomas Maciel MD Attending Provider Non-Staff Referring Provider Specialty: Orthopedic Surgery Address: [address] [place] [address], [id number] Email: Physical Therapy Initial Evaluation PT-OP-A Visit Information Start: 06/16/21 17:48 Freq: Status: Active Protocol: Document 06/20/21 16:40 [facility] (Rec: 06/20/21 18:15 [facility] [id number]) Out-Patient Physical Therapy Visit Information Visit Information Visit Type Initial Evaluation Visit Note 24 visitsmax per year Visit Start Time 16:46 Visit Stop Time 17:31 Total Visit Minutes 45 Visit Number 1 Number of MAINTENANCE AND UTILITIES SUPERVISOR Visits 0 Precautions Precautions surgeon told pt to avoid ER and overhead PT-OP-B Current Condition Start: 06/16/21 17:48 Freq: Status: Active Protocol: Document 06/20/21 16:40 [facility] (Rec: 06/20/21 18:15 [facility] [id number]) Current Condition History of Current Condition Onset Date 2016 Current Complaints B shoulder instability, L pain History of Current Condition Pt reports she frayed her labrum, has arthritis and fractured her joint. First time dislocated shoulder, in 2016 she dislocated a shoulder but doesn't remember which one and had to go to the hospital for relocation. In April 2019, she dislocated both shoulders roller skating. Most recent, pt dislocated L shoulder in Mar rolling in bed . She dislocated R shoulder in April and reached back to grab something from back seat when drivign and had to caul fat puller to relocated shoulder. Even laying on L shoulder hurts. 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 D/t this, she thinks she will wait until the end of the year. She reports she gets ant dislocations and mostly often w/flex and ER. She reports she has to overall be more cautious and cannot put bra on. Pt was at a concert this weekend and couldn't raise her arms overhead. Pt was at a reptile show June 12 and had pain in scap and friend cracked that area and it helped then got better after couple hours. Occ neck pain especially with a lot of desk work. Treatment Goals Patient/Caregiver Goals Have full motion of shoulder again, know what is happening to hurt it, be able to not have to be so careful PT-OP-C Subjective Start: 06/16/21 17:48 Freq: Status: Active Protocol: Document 06/20/21 16:40 [facility] (Rec: 06/20/21 18:15 [facility] [id number]) OP-PT Pain Assessment Location L shoulder Pain Location Details ant to post shoulder Intensity 4 Scale Used Numeric (0 - 10) Description Aching,Dull,With Movement Frequency Intermittent Variations/Patterns post arm pain w/overhead motion w/wrist motion Other Pain Aggravating Factors behind back, overhead ext time , lay on shoulder, reach back Pain Alleviating Factors Medication Other Pain Alleviating Factors CBD rub or tylenol PT-OP-F Manual Assessment Start: 06/16/21 17:48 Freq: Status: Active Protocol: Document 06/20/21 16:40 [facility] (Rec: 06/20/21 18:15 [facility] [id number]) Manual Assessments Soft Tissue Assessment Soft Tissue Mobility Assessment tenderness to L pec, infraspinatus, parascap mm, AC jt, biceps tendon, scalenes, UT, LS PT-OP-J Posture/Palpation/Skin Start: 06/16/21 17:48 Freq: Status: Active Protocol: Document 06/20/21 16:40 [facility] (Rec: 06/20/21 18:15 [facility] [id number]) Posture Evaluation [facility] Postural Classification System [facility] Postural Classifications Posterior/Anterior Elbow Flexion Test 0 Comments Posture Comments humerus ant in glenoid L>R, scap b ant tipped and abd, fwd head, inc kyphosis mostly at upper thoracic PT-OP-K Range of Motion Start: 06/16/21 17:48 Freq: Status: Active Protocol: Document 06/20/21 16:40 [facility] (Rec: 06/20/21 18:15 [facility] [id number]) Shoulder Goniometric Range of Motion Shoulder Right Active Flexion 164 Extension 60 Abduction 167 External Rotation at 0 degrees Abduction 65 Internal Rotation Behind Back (text) T6 Left Active Flexion 139 Extension 50 Abduction 155 External Rotation at 0 degrees Abduction 34 PT-OP-L Special Tests Start: 06/16/21 17:48 Freq: Status: Active Protocol: Document 06/20/21 16:40 [facility] (Rec: 06/20/21 18:15 [facility] [id number]) Special Tests Neural Special Tests- Upper Body Radial Nerve Tension Test Results neg L Median Nerve Tension Test Results mild positive L Ulnar Nerve Tension Test Results neg L PT-OP-M Strength Start: 06/16/21 17:48 Freq: Status: Active Protocol: Document 06/20/21 16:40 [facility] (Rec: 06/20/21 18:15 [facility] [id number]) Shoulder Strength Shoulder Manual Muscle Testing Right Flexion 4 Good Extension 4 Good Abduction (C5) 4 Good External Rotation 4- Good- Internal Rotation 4+ Good+ Left Flexion 4- Good- Extension 4- Good- Abduction (C5) 4- Good- External Rotation 3 Fair Internal Rotation 3+ Fair+ Elbow/Forearm Strength Elbow and Forearm Manual Muscle Testing Right Flexion (C6) 5 Normal Extension (C7) 5 Normal Left Flexion (C6) 5 Normal Extension (C7) 5 Normal PT-OP-Q Treatments Start: 06/16/21 17:48 Freq: Status: Active Protocol: Document 06/20/21 16:40 [facility] (Rec: 06/20/21 18:15 [facility] [id number]) Self-Care/Home Management Treatment Education Other Education discussion of things to look for in a bra (thick straps, good cup support, underwire, adjustable straps, racer back can be helpful. Edu on shoulder anatomy and job of labrum and how surgery will be important for improving her stability and ability to do full ROM especially against resistance PT-OP-T Assessment and Plan Start: 06/16/21 17:48 Freq: Status: Active Protocol: Document 06/20/21 16:40 [facility] (Rec: 06/20/21 18:15 [facility] [id number]) Physical Therapy Assessment Rehab Potential Rehabilitation Potential Good Evaluation Complexity Number of Personal Factors/Comorbidities 3 or More Number of Body Systems Impaired 4 or More Clinical Presentation at Evaluation Unstable Impairments Impairments Activity Tolerance,Functional Activities,Functional Mobility ,Pain,Posture,ROM,Soft Tissue Mobility,Strength Goals activities Short Term Goal (STG) Pt will be able to lay on shoulder w/o inc pain STG Duration 08/18/21 Electrical Engineer Goal (LTG) pt will be david to do BUE lift and not feel like she has to only use RUE when lifting at work. LTG Duration 09/20/21 ROM Short Term Goal (STG) Ptw ill be able to hold UEs in air for extended time for ADLs and w/concerts w/o inc pain B STG Duration 07/21/21 Fdc Goal (LTG) Pt will have full B shoulder AROM w/o inc pain. LTG Duration 08/20/21 strength Short Term Goal (STG) Pt will be indep w/HEP STG Duration 07/21/21 Electrical Engineer Goal (LTG) pt will have 5/5 BUE MMT and at least 4/5 EFT to show improved shoulder stability to improve pt abilityt o do her typical daily activties w/o pain. LTG Duration 09/20/21 Assessment Summary Assessment Pt presents w/B shoulder instability w/L shoulder having more pain and difficulty than R. She has torn labrum and is planning to have surgery, but is limited at this time d/t her schedule w/work and school and inability to take time off of school at this time. She has dec ROM L>R and pain w/ROM and MMT testing, dec strength L>R and overall impaired posture/ position of shoulder and scap. She would bneefit from PT at this time to improve her ROM, posture and strength prior to surgery to improve stability until she is able to get surgery. Physical Therapy Plan Frequency and Duration Frequency of Treatment 1-2x/week Duration of Treatment 3 months Plan of Care Start Date 06/20/21 Plan of Care End Date 09/20/21 Therapeutic Interventions Therapeutic Interventions Home Exercise Program,Joint Mobilizations,Manual Therapy, Neuromuscular Re-education, Patient/Caregiver Education, Self-Care/Home Management,Soft Tissue Mobilization,Taping, Therapeutic Activities, Therapeutic Exercises Modalities Cold Pack/Ice Massage,Electric Stimulation,Hot Packs, Infrared Therapy,Ultrasound Next Visit Focus/Plan Next Note Type Treatment Note Next Visit Plan start scap stability training, scap set w/ B shoulder ext to side, chin tucks, wall posture w/B shoulder ext, IR tband, manual for improved scap set on L ribcage Avoid ER and overhead w/ resistance
--- NOTE | 2021-06-20 18:15 | PT.OPPOC ---
Physical, Occupational & Speech Therapy At [facility] Current Diagnoses Other instability, unspecified shoulder (06/20/21) Abnormal posture (06/20/21) Weakness (06/20/21) Visit Care Team Role Provider Type Sourav Smith DO Family Provider Physician Primary Care Provider Specialty: Family Practice Address: [address] [place] [address], [id number] Email: Thomas Maciel MD Attending Provider Non-Staff Referring Provider Specialty: Orthopedic Surgery Address: [facility] , [place], [address] Email: Plan Of Care PT-OP-T Assessment and Plan Start: 06/16/21 17:48 Freq: Status: Active Protocol: Document 06/20/21 16:40 [facility] (Rec: 06/20/21 18:15 [facility] [id number]) Physical Therapy Assessment Rehab Potential Rehabilitation Potential Good Evaluation Complexity Number of Personal Factors/Comorbidities 3 or More Number of Body Systems Impaired 4 or More Clinical Presentation at Evaluation Unstable Impairments Impairments Activity Tolerance,Functional Activities,Functional Mobility ,Pain,Posture,ROM,Soft Tissue Mobility,Strength Goals activities Short Term Goal (STG) Pt will be able to lay on shoulder w/o inc pain STG Duration 08/18/21 Penitentiary Goal (LTG) pt will be david to do BUE lift and not feel like she has to only use RUE when lifting at work. LTG Duration 09/20/21 ROM Short Term Goal (STG) Ptw ill be able to hold UEs in air for extended time for ADLs and w/concerts w/o inc pain B STG Duration 07/21/21 Penitentiary Goal (LTG) Pt will have full B shoulder AROM w/o inc pain. LTG Duration 08/20/21 strength Short Term Goal (STG) Pt will be indep w/HEP STG Duration 07/21/21 Penitentiary Goal (LTG) pt will have 5/5 BUE MMT and at least 4/5 EFT to show improved shoulder stability to improve pt abilityt o do her typical daily activties w/o pain. LTG Duration 09/20/21 Assessment Summary Assessment Pt presents w/B shoulder instability w/L shoulder having more pain and difficulty than R. She has torn labrum and is planning to have surgery, but is limited at this time d/t her schedule w/work and school and inability to take time off of school at this time. She has dec ROM L>R and pain w/ROM and MMT testing, dec strength L>R and overall impaired posture/ position of shoulder and scap. She would bneefit from PT at this time to improve her ROM, posture and strength prior to surgery to improve stability until she is able to get surgery. Physical Therapy Plan Frequency and Duration Frequency of Treatment 1-2x/week Duration of Treatment 3 months Plan of Care Start Date 06/20/21 Plan of Care End Date 09/20/21 Therapeutic Interventions Therapeutic Interventions Home Exercise Program,Joint Mobilizations,Manual Therapy, Neuromuscular Re-education, Patient/Caregiver Education, Self-Care/Home Management,Soft Tissue Mobilization,Taping, Therapeutic Activities, Therapeutic Exercises Modalities Cold Pack/Ice Massage,Electric Stimulation,Hot Packs, Infrared Therapy,Ultrasound Next Visit Focus/Plan Next Note Type Treatment Note Next Visit Plan start scap stability training, scap set w/ B shoulder ext to side, chin tucks, wall posture w/B shoulder ext, IR tband, manual for improved scap set on L ribcage Avoid ER and overhead w/ resistance Plan of Care Dates Plan of Care Start Date 06/20/21 Plan of Care End Date 09/20/21 Electronically Signed by: Veronique Acosta, PT 06/20/21 [id number] If you are in agreement with this Plan of Care, please return a signed and dated copy. I have reviewed this Plan of Care and certify that the skilled therapy services above are required to meet the patient?s needs. Physician Signature Date Printed Name and Credentials Clinical Instructor Signature Printed Name and Credentials
--- NOTE | 2021-06-22 09:48 | PT.OTN ---
Current Diagnoses Other instability, unspecified shoulder (06/22/21) Abnormal posture (06/22/21) Weakness (06/22/21) Physical Therapy Treatment Note PT-OP-A Visit Information Start: 06/16/21 17:48 Freq: Status: Active Protocol: Document 06/22/21 08:36 [facility] (Rec: 06/22/21 09:48 [facility] [id number]) Out-Patient Physical Therapy Visit Information Visit Information Visit Type Treatment Note Visit Note 24 visitsmax per year Visit Start Time 08:20 Visit Stop Time 09:00 Total Visit Minutes 40 Visit Number 2 Number of LINER REROLL TENDER Visits 0 PT-OP-B Current Condition Start: 06/16/21 17:48 Freq: Status: Active Protocol: Document 06/20/21 16:40 [facility] (Rec: 06/20/21 18:15 [facility] [id number]) Current Condition History of Current Condition Onset Date 2016 Current Complaints B shoulder instability, L pain History of Current Condition Pt reports she frayed her labrum, has arthritis and fractured her joint. First time dislocated shoulder, in 2016 she dislocated a shoulder but doesn't remember which one and had to go to the hospital for relocation. In April 2019, she dislocated both shoulders roller skating. Most recent, pt dislocated L shoulder in [place] rolling in bed . She dislocated R shoulder in April and reached back to grab something from back seat when drivign and had to picker/puller to relocated shoulder. Even laying on L shoulder hurts. 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 D/t this, she thinks she will wait until the end of the year. She reports she gets ant dislocations and mostly often w/flex and ER. She reports she has to overall be more cautious and cannot put bra on. Pt was at a concert this weekend and couldn't raise her arms overhead. Pt was at a reptile show June 12 and had pain in scap and friend cracked that area and it helped then got better after couple hours. Occ neck pain especially with a lot of desk work. Treatment Goals Patient/Caregiver Goals Have full motion of shoulder again, know what is happening to hurt it, be able to not have to be so careful PT-OP-C Subjective Start: 06/16/21 17:48 Freq: Status: Active Protocol: Document 06/22/21 08:36 [facility] (Rec: 06/22/21 09:48 [facility] [id number]) OP-PT Subjective Patient Comments Patient Comments Pt reports no new complaints. She talks to her advisor next week and will know more of when she can fit in surgery. PT-OP-F Manual Assessment Start: 06/16/21 17:48 Freq: Status: Active Protocol: Document 06/20/21 16:40 [facility] (Rec: 06/20/21 18:15 [facility] [id number]) Manual Assessments Soft Tissue Assessment Soft Tissue Mobility Assessment tenderness to L pec, infraspinatus, parascap mm, AC jt, biceps tendon, scalenes, UT, LS PT-OP-J Posture/Palpation/Skin Start: 06/16/21 17:48 Freq: Status: Active Protocol: Document 06/20/21 16:40 [facility] (Rec: 06/20/21 18:15 [facility] [id number]) Posture Evaluation [facility] Postural Classification System Dora Postural Classifications Posterior/Anterior Elbow Flexion Test 0 Comments Posture Comments humerus ant in glenoid L>R, scap b ant tipped and abd, fwd head, inc kyphosis mostly at upper thoracic PT-OP-K Range of Motion Start: 06/16/21 17:48 Freq: Status: Active Protocol: Document 06/20/21 16:40 [facility] (Rec: 06/20/21 18:15 [facility] [id number]) Shoulder Goniometric Range of Motion Shoulder Right Active Flexion 164 Extension 60 Abduction 167 External Rotation at 0 degrees Abduction 65 Internal Rotation Behind Back (text) T6 Left Active Flexion 139 Extension 50 Abduction 155 External Rotation at 0 degrees Abduction 34 PT-OP-L Special Tests Start: 06/16/21 17:48 Freq: Status: Active Protocol: Document 06/20/21 16:40 [facility] (Rec: 06/20/21 18:15 [facility] [id number]) Special Tests Neural Special Tests- Upper Body Radial Nerve Tension Test Results neg L Median Nerve Tension Test Results mild positive L Ulnar Nerve Tension Test Results neg L PT-OP-M Strength Start: 06/16/21 17:48 Freq: Status: Active Protocol: Document 06/20/21 16:40 [facility] (Rec: 06/20/21 18:15 [facility] [id number]) Shoulder Strength Shoulder Manual Muscle Testing Right Flexion 4 Good Extension 4 Good Abduction (C5) 4 Good External Rotation 4- Good- Internal Rotation 4+ Good+ Left Flexion 4- Good- Extension 4- Good- Abduction (C5) 4- Good- External Rotation 3 Fair Internal Rotation 3+ Fair+ Elbow/Forearm Strength Elbow and Forearm Manual Muscle Testing Right Flexion (C6) 5 Normal Extension (C7) 5 Normal Left Flexion (C6) 5 Normal Extension (C7) 5 Normal PT-OP-Q Treatments Start: 06/16/21 17:48 Freq: Status: Active Protocol: Document 06/22/21 08:36 [facility] (Rec: 06/22/21 09:48 [facility] [id number]) Cardio Equipment Upper Body Ergometer (UBE) Duration (Minutes) 4 Seat Position 13 Height 4 Other fwd/back Therapeutic Exercises Sitting Exercises chin tucks Reps/Minutes 10 Standing Exercises wall posture Standing Exercise Name wall roll up w/B shoulder ext Side bilateral Reps/Minutes 1 min ext Side bilateral Equipment Used L1 Reps/Minutes 2x15 IR Standing Exercise Name at side Side bilateral Equipment Used L2 Reps/Minutes 15 isometrics Standing Exercise Name flex, ER,abd Side bilateral Reps/Minutes 5 sec x8 ea Manual Therapy Treatment Soft Tissue Mobilization pec Body Location L pec, bicep, ant delt Mobilization Type Rolling,Strumming Intensity/Depth Moderate Body Position Supine Joint Mobilizations GH Joint L Direction post FM Grade II PT-OP-T Assessment and Plan Start: 06/16/21 17:48 Freq: Status: Active Protocol: Document 06/22/21 08:36 [facility] (Rec: 06/22/21 09:48 [facility] [id number]) Physical Therapy Assessment Goals activities Short Term Goal (STG) Pt will be able to lay on shoulder w/o inc pain STG Duration 08/18/21 Laryngologist Goal (LTG) pt will be david to do BUE lift and not feel like she has to only use RUE when lifting at work. LTG Duration 09/20/21 ROM Short Term Goal (STG) Ptw ill be able to hold UEs in air for extended time for ADLs and w/concerts w/o inc pain B STG Duration 07/21/21 Alf Goal (LTG) Pt will have full B shoulder AROM w/o inc pain. LTG Duration 08/20/21 strength Short Term Goal (STG) Pt will be indep w/HEP STG Duration 07/21/21 Alf Goal (LTG) pt will have 5/5 BUE MMT and at least 4/5 EFT to show improved shoulder stability to improve pt abilityt o do her typical daily activties w/o pain. LTG Duration 09/20/21 Assessment Summary Assessment Pt did well with exercises but did require cues for scap position and w/isometrics to push w/arm vs lean w/body. She tolerated manual well and had imrpoved pec flexibility test after manual Physical Therapy Plan Frequency and Duration Frequency of Treatment 1-2x/week Duration of Treatment 3 months Plan of Care Start Date 06/20/21 Plan of Care End Date 09/20/21 Next Visit Focus/Plan Next Note Type Treatment Note Next Visit Plan review exercises, manual for improved scap set and PNF to scap
--- NOTE | 2021-06-28 09:46 | PT.OTN ---
Current Diagnoses Other instability, unspecified shoulder (06/28/21) Abnormal posture (06/28/21) Weakness (06/28/21) Physical Therapy Treatment Note PT-OP-A Visit Information Start: 06/16/21 17:48 Freq: Status: Active Protocol: Document 06/28/21 08:52 [facility] (Rec: 06/28/21 09:46 [facility] [id number]) Out-Patient Physical Therapy Visit Information Visit Information Visit Type Treatment Note Visit Note 24 visitsmax per year Visit Start Time 08:55 Visit Stop Time 09:40 Total Visit Minutes 45 Visit Number 3 Number of DIRECTOR OF SOFTWARE ENGINEERING Visits 0 Precautions Precautions surgeon told pt to avoid ER and overhead PT-OP-B Current Condition Start: 06/16/21 17:48 Freq: Status: Active Protocol: Document 06/20/21 16:40 [facility] (Rec: 06/20/21 18:15 [facility] [id number]) Current Condition History of Current Condition Onset Date 2016 Current Complaints B shoulder instability, L pain History of Current Condition Pt reports she frayed her labrum, has arthritis and fractured her joint. First time dislocated shoulder, in 2016 she dislocated a shoulder but doesn't remember which one and had to go to the hospital for relocation. In April 2019, she dislocated both shoulders roller skating. Most recent, pt dislocated L shoulder [place] rolling in bed . She dislocated R shoulder in April and reached back to grab something from back seat when drivign and had to cloth covered helmet puller to relocated shoulder. Even laying on L shoulder hurts. 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 D/t this, she thinks she will wait until the end of the year. She reports she gets ant dislocations and mostly often w/flex and ER. She reports she has to overall be more cautious and cannot put bra on. Pt was at a concert this weekend and couldn't raise her arms overhead. Pt was at a reptile show June 12 and had pain in scap and friend cracked that area and it helped then got better after couple hours. Occ neck pain especially with a lot of desk work. Treatment Goals Patient/Caregiver Goals Have full motion of shoulder again, know what is happening to hurt it, be able to not have to be so careful PT-OP-C Subjective Start: 06/16/21 17:48 Freq: Status: Active Protocol: Document 06/28/21 08:52 [facility] (Rec: 06/28/21 09:46 [facility] [id number]) OP-PT Subjective Patient Comments Patient Comments Pt notes it is looking towards the end of the year that she will be able to do surgery. She was a little sore after last session, but it was mild. Notes exercises went okay at home. Did all but wall posture . PT-OP-F Manual Assessment Start: 06/16/21 17:48 Freq: Status: Active Protocol: Document 06/20/21 16:40 [facility] (Rec: 06/20/21 18:15 [facility] [id number]) Manual Assessments Soft Tissue Assessment Soft Tissue Mobility Assessment tenderness to L pec, infraspinatus, parascap mm, AC jt, biceps tendon, scalenes, UT, LS PT-OP-J Posture/Palpation/Skin Start: 06/16/21 17:48 Freq: Status: Active Protocol: Document 06/20/21 16:40 [facility] (Rec: 06/20/21 18:15 [facility] [id number]) Posture Evaluation [facility] Postural Classification System Dora Postural Classifications Posterior/Anterior Elbow Flexion Test 0 Comments Posture Comments humerus ant in glenoid L>R, scap b ant tipped and abd, fwd head, inc kyphosis mostly at upper thoracic PT-OP-K Range of Motion Start: 06/16/21 17:48 Freq: Status: Active Protocol: Document 06/20/21 16:40 [facility] (Rec: 06/20/21 18:15 [facility] [id number]) Shoulder Goniometric Range of Motion Shoulder Right Active Flexion 164 Extension 60 Abduction 167 External Rotation at 0 degrees Abduction 65 Internal Rotation Behind Back (text) T6 Left Active Flexion 139 Extension 50 Abduction 155 External Rotation at 0 degrees Abduction 34 PT-OP-L Special Tests Start: 06/16/21 17:48 Freq: Status: Active Protocol: Document 06/20/21 16:40 [facility] (Rec: 06/20/21 18:15 [facility] [id number]) Special Tests Neural Special Tests- Upper Body Radial Nerve Tension Test Results neg L Median Nerve Tension Test Results mild positive L Ulnar Nerve Tension Test Results neg L PT-OP-M Strength Start: 06/16/21 17:48 Freq: Status: Active Protocol: Document 06/20/21 16:40 [facility] (Rec: 06/20/21 18:15 [facility] [id number]) Shoulder Strength Shoulder Manual Muscle Testing Right Flexion 4 Good Extension 4 Good Abduction (C5) 4 Good External Rotation 4- Good- Internal Rotation 4+ Good+ Left Flexion 4- Good- Extension 4- Good- Abduction (C5) 4- Good- External Rotation 3 Fair Internal Rotation 3+ Fair+ Elbow/Forearm Strength Elbow and Forearm Manual Muscle Testing Right Flexion (C6) 5 Normal Extension (C7) 5 Normal Left Flexion (C6) 5 Normal Extension (C7) 5 Normal PT-OP-Q Treatments Start: 06/16/21 17:48 Freq: Status: Active Protocol: Document 06/28/21 08:52 [facility] (Rec: 06/28/21 09:46 [facility] [id number]) Cardio Equipment Upper Body Ergometer (UBE) Duration (Minutes) 5 Seat Position 11 Height 4.5 Other fwd/back Therapeutic Exercises Sitting Exercises chin tucks Reps/Minutes 10 Standing Exercises wall posture Standing Exercise Name wall roll up w/B shoulder ext Side bilateral Reps/Minutes 1 minx2 ext Side bilateral Equipment Used L2 Reps/Minutes 15 IR Standing Exercise Name at side Side bilateral Equipment Used L2 Reps/Minutes 15 isometrics Standing Exercise Name flex, ER,abd Side bilateral Reps/Minutes 5 sec x5 ea Manual Therapy Treatment Soft Tissue Mobilization post Body Location L teres, lats,rhomboids Mobilization Type Rolling,Strumming Intensity/Depth Moderate Body Position Sidelying pec Body Location L pec, bicep, ant delt Mobilization Type Rolling,Strumming Intensity/Depth Moderate Body Position Supine Joint Mobilizations scap Joint L Direction med, inf SC Joint L Direction caudal FM GH Joint L Direction post FM Grade II PT-OP-T Assessment and Plan Start: 06/16/21 17:48 Freq: Status: Active Protocol: Document 06/28/21 08:52 [facility] (Rec: 06/28/21 09:46 [facility] [id number]) Physical Therapy Assessment Goals activities Short Term Goal (STG) Pt will be able to lay on shoulder w/o inc pain STG Duration 08/18/21 Market Manager Goal (LTG) pt will be david to do BUE lift and not feel like she has to only use RUE when lifting at work. LTG Duration 09/20/21 ROM Short Term Goal (STG) Ptw ill be able to hold UEs in air for extended time for ADLs and w/concerts w/o inc pain B STG Duration 07/21/21 Market Manager Goal (LTG) Pt will have full B shoulder AROM w/o inc pain. LTG Duration 08/20/21 strength Short Term Goal (STG) Pt will be indep w/HEP STG Duration 07/21/21 Market Manager Goal (LTG) pt will have 5/5 BUE MMT and at least 4/5 EFT to show improved shoulder stability to improve pt abilityt o do her typical daily activties w/o pain. LTG Duration 09/20/21 Assessment Summary Assessment Pt did well with exercises and requried min cueing. She had imrpoved scap motion after manual treatment and felt better engagment of post mm. Physical Therapy Plan Frequency and Duration Frequency of Treatment 1-2x/week Duration of Treatment 3 months Plan of Care Start Date 06/20/21 Plan of Care End Date 09/20/21 Therapeutic Interventions Therapeutic Interventions Home Exercise Program,Joint Mobilizations,Manual Therapy, Neuromuscular Re-education, Patient/Caregiver Education, Self-Care/Home Management,Soft Tissue Mobilization,Taping, Therapeutic Activities, Therapeutic Exercises Modalities Cold Pack/Ice Massage,Electric Stimulation,Hot Packs, Infrared Therapy,Ultrasound Next Visit Focus/Plan Next Note Type Treatment Note Next Visit Plan cont to advance scap stability and work on RC strength & stability, PNF & manual to improve ROM & scap position
--- NOTE | 2021-07-05 09:51 | PT.OTN ---
Current Diagnoses Other instability, unspecified shoulder (07/05/21) Abnormal posture (07/05/21) Weakness (07/05/21) Physical Therapy Treatment Note PT-OP-A Visit Information Start: 06/16/21 17:48 Freq: Status: Active Protocol: Document 07/05/21 09:07 [facility] (Rec: 07/05/21 09:51 [facility] [id number]) Out-Patient Physical Therapy Visit Information Visit Information Visit Type Treatment Note Visit Note 24 visitsmax per year Visit Start Time 09:05 Visit Stop Time 09:45 Total Visit Minutes 40 Visit Number 4 Number of CUFF SETTER OVERLOCK Visits 0 PT-OP-B Current Condition Start: 06/16/21 17:48 Freq: Status: Active Protocol: Document 06/20/21 16:40 [facility] (Rec: 06/20/21 18:15 [facility] [id number]) Current Condition History of Current Condition Onset Date 2016 Current Complaints B shoulder instability, L pain History of Current Condition Pt reports she frayed her labrum, has arthritis and fractured her joint. First time dislocated shoulder, in 2016 she dislocated a shoulder but doesn't remember which one and had to go to the hospital for relocation. In April 2019, she dislocated both shoulders roller skating. Most recent, pt dislocated L shoulder in [place] rolling in bed . She dislocated R shoulder in April and reached back to grab something from back seat when drivign and had to stick puller to relocated shoulder. Even laying on L shoulder hurts. 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 D/t this, she thinks she will wait until the end of the year. She reports she gets ant dislocations and mostly often w/flex and ER. She reports she has to overall be more cautious and cannot put bra on. Pt was at a concert this weekend and couldn't raise her arms overhead. Pt was at a reptile show June 12 and had pain in scap and friend cracked that area and it helped then got better after couple hours. Occ neck pain especially with a lot of desk work. Treatment Goals Patient/Caregiver Goals Have full motion of shoulder again, know what is happening to hurt it, be able to not have to be so careful PT-OP-C Subjective Start: 06/16/21 17:48 Freq: Status: Active Protocol: Document 07/05/21 09:07 [facility] (Rec: 07/05/21 09:51 [facility] [id number]) OP-PT Subjective Patient Comments Patient Comments Pt reports she has felt like she doesn't have to be as careful now w/shoulder. She hasn't felt unstable, but is still being careful. Notes she feels like she has more movement. PT-OP-F Manual Assessment Start: 06/16/21 17:48 Freq: Status: Active Protocol: Document 06/20/21 16:40 [facility] (Rec: 06/20/21 18:15 [facility] [id number]) Manual Assessments Soft Tissue Assessment Soft Tissue Mobility Assessment tenderness to L pec, infraspinatus, parascap mm, AC jt, biceps tendon, scalenes, UT, LS PT-OP-J Posture/Palpation/Skin Start: 06/16/21 17:48 Freq: Status: Active Protocol: Document 06/20/21 16:40 [facility] (Rec: 06/20/21 18:15 [facility] [id number]) Posture Evaluation [facility] Postural Classification System [facility] Postural Classifications Posterior/Anterior Elbow Flexion Test 0 Comments Posture Comments humerus ant in glenoid L>R, scap b ant tipped and abd, fwd head, inc kyphosis mostly at upper thoracic PT-OP-K Range of Motion Start: 06/16/21 17:48 Freq: Status: Active Protocol: Document 06/20/21 16:40 [facility] (Rec: 06/20/21 18:15 [facility] [id number]) Shoulder Goniometric Range of Motion Shoulder Right Active Flexion 164 Extension 60 Abduction 167 External Rotation at 0 degrees Abduction 65 Internal Rotation Behind Back (text) T6 Left Active Flexion 139 Extension 50 Abduction 155 External Rotation at 0 degrees Abduction 34 PT-OP-L Special Tests Start: 06/16/21 17:48 Freq: Status: Active Protocol: Document 06/20/21 16:40 [facility] (Rec: 06/20/21 18:15 [facility] [id number]) Special Tests Neural Special Tests- Upper Body Radial Nerve Tension Test Results neg L Median Nerve Tension Test Results mild positive L Ulnar Nerve Tension Test Results neg L PT-OP-M Strength Start: 06/16/21 17:48 Freq: Status: Active Protocol: Document 06/20/21 16:40 [facility] (Rec: 06/20/21 18:15 [facility] [id number]) Shoulder Strength Shoulder Manual Muscle Testing Right Flexion 4 Good Extension 4 Good Abduction (C5) 4 Good External Rotation 4- Good- Internal Rotation 4+ Good+ Left Flexion 4- Good- Extension 4- Good- Abduction (C5) 4- Good- External Rotation 3 Fair Internal Rotation 3+ Fair+ Elbow/Forearm Strength Elbow and Forearm Manual Muscle Testing Right Flexion (C6) 5 Normal Extension (C7) 5 Normal Left Flexion (C6) 5 Normal Extension (C7) 5 Normal PT-OP-Q Treatments Start: 06/16/21 17:48 Freq: Status: Active Protocol: Document 07/05/21 09:07 [facility] (Rec: 07/05/21 09:51 [facility] [id number]) Cardio Equipment Upper Body Ergometer (UBE) Duration (Minutes) 5 Seat Position 11 Height 4.5 Other fwd/back Therapeutic Exercises Supine Exercises serratus punch Side bilateral Equipment Used 3# Reps/Minutes 15 Sidelying Exercises abd Sidelying Exercise Name TO 90 Side bilateral Equipment Used 2LB Reps/Minutes 15 Sitting Exercises chin tucks Reps/Minutes 10 Standing Exercises ER Side bilateral Equipment Used L1 Reps/Minutes 15 Habd Side bilateral Equipment Used L1 Reps/Minutes 15 Comments cues for scap motion ext Side bilateral Equipment Used L3 Reps/Minutes 15 IR Standing Exercise Name at side Side bilateral Equipment Used L3 Reps/Minutes 15 Manual Therapy Treatment Soft Tissue Mobilization post Body Location L teres, lats,rhomboids Mobilization Type Rolling,Strumming Intensity/Depth Moderate Body Position Sidelying pec Body Location L pec Mobilization Type Rolling,Strumming Intensity/Depth Moderate Body Position Supine Comments w/rot Joint Mobilizations scap Joint L Direction med, inf GH Joint L Direction post FM Grade II PT-OP-T Assessment and Plan Start: 06/16/21 17:48 Freq: Status: Active Protocol: Document 07/05/21 09:07 [facility] (Rec: 07/05/21 09:51 [facility] [id number]) Physical Therapy Assessment Goals activities Short Term Goal (STG) Pt will be able to lay on shoulder w/o inc pain STG Duration 08/18/21 Elementary Tutor Goal (LTG) pt will be david to do BUE lift and not feel like she has to only use RUE when lifting at work. LTG Duration 09/20/21 ROM Short Term Goal (STG) Ptw ill be able to hold UEs in air for extended time for ADLs and w/concerts w/o inc pain B STG Duration 07/21/21 Halfway Goal (LTG) Pt will have full B shoulder AROM w/o inc pain. LTG Duration 08/20/21 strength Short Term Goal (STG) Pt will be indep w/HEP STG Duration 07/21/21 Halfway Goal (LTG) pt will have 5/5 BUE MMT and at least 4/5 EFT to show improved shoulder stability to improve pt abilityt o do her typical daily activties w/o pain. LTG Duration 09/20/21 Assessment Summary Assessment Pt did well with inc in strengthening w/o inc pain. She had more difficulty w/LUE though. She cont to improve w /scap range w/manual Physical Therapy Plan Frequency and Duration Frequency of Treatment 1-2x/week Duration of Treatment 3 months Plan of Care Start Date 06/20/21 Plan of Care End Date 09/20/21 Next Visit Focus/Plan Next Note Type Treatment Note Next Visit Plan cont to advance scap stability and work on RC strength & stability, PNF & manual to improve ROM & scap position
--- NOTE | 2021-07-21 09:47 | PT.OTN ---
Current Diagnoses Other instability, unspecified shoulder (07/21/21) Abnormal posture (07/21/21) Weakness (07/21/21) Physical Therapy Treatment Note PT-OP-A Visit Information Start: 06/16/21 17:48 Freq: Status: Active Protocol: Document 07/21/21 08:52 MA (Rec: 07/21/21 09:47 MA [id number]) Out-Patient Physical Therapy Visit Information Visit Information Visit Type Treatment Note Visit Note 24 visitsmax per year Visit Start Time 08:58 Visit Stop Time 09:40 Total Visit Minutes 42 Visit Number 5 Number of TYPISTS SUPERVISOR Visits 1 Precautions Precautions surgeon told pt to avoid ER and overhead PT-OP-B Current Condition Start: 06/16/21 17:48 Freq: Status: Active Protocol: Document 06/20/21 16:40 [facility] (Rec: 06/20/21 18:15 [facility] [id number]) Current Condition History of Current Condition Onset Date 2016 Current Complaints B shoulder instability, L pain History of Current Condition Pt reports she frayed her labrum, has arthritis and fractured her joint. First time dislocated shoulder, in 2016 she dislocated a shoulder but doesn't remember which one and had to go to the hospital for relocation. In April 2019, she dislocated both shoulders roller skating. Most recent, pt dislocated L shoulder in [place] rolling in bed . She dislocated R shoulder in April and reached back to grab something from back seat when drivign and had to caul fat puller to relocated shoulder. Even laying on L shoulder hurts. 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 D/t this, she thinks she will wait until the end of the year. She reports she gets ant dislocations and mostly often w/flex and ER. She reports she has to overall be more cautious and cannot put bra on. Pt was at a concert this weekend and couldn't raise her arms overhead. Pt was at a reptile show June 12 and had pain in scap and friend cracked that area and it helped then got better after couple hours. Occ neck pain especially with a lot of desk work. Treatment Goals Patient/Caregiver Goals Have full motion of shoulder again, know what is happening to hurt it, be able to not have to be so careful PT-OP-C Subjective Start: 06/16/21 17:48 Freq: Status: Active Protocol: Document 07/21/21 08:52 MA (Rec: 07/21/21 09:47 MA [id number]) OP-PT Subjective Patient Comments Patient Comments Pt has no pain and no recent dislocations. PT-OP-F Manual Assessment Start: 06/16/21 17:48 Freq: Status: Active Protocol: Document 06/20/21 16:40 [facility] (Rec: 06/20/21 18:15 [facility] [id number]) Manual Assessments Soft Tissue Assessment Soft Tissue Mobility Assessment tenderness to L pec, infraspinatus, parascap mm, AC jt, biceps tendon, scalenes, UT, LS PT-OP-J Posture/Palpation/Skin Start: 06/16/21 17:48 Freq: Status: Active Protocol: Document 06/20/21 16:40 [facility] (Rec: 06/20/21 18:15 [facility] [id number]) Posture Evaluation [facility] Postural Classification System [facility] Postural Classifications Posterior/Anterior Elbow Flexion Test 0 Comments Posture Comments humerus ant in glenoid L>R, scap b ant tipped and abd, fwd head, inc kyphosis mostly at upper thoracic PT-OP-K Range of Motion Start: 06/16/21 17:48 Freq: Status: Active Protocol: Document 06/20/21 16:40 [facility] (Rec: 06/20/21 18:15 [facility] [id number]) Shoulder Goniometric Range of Motion Shoulder Right Active Flexion 164 Extension 60 Abduction 167 External Rotation at 0 degrees Abduction 65 Internal Rotation Behind Back (text) T6 Left Active Flexion 139 Extension 50 Abduction 155 External Rotation at 0 degrees Abduction 34 PT-OP-L Special Tests Start: 06/16/21 17:48 Freq: Status: Active Protocol: Document 06/20/21 16:40 [facility] (Rec: 06/20/21 18:15 [facility] [id number]) Special Tests Neural Special Tests- Upper Body Radial Nerve Tension Test Results neg L Median Nerve Tension Test Results mild positive L Ulnar Nerve Tension Test Results neg L PT-OP-M Strength Start: 06/16/21 17:48 Freq: Status: Active Protocol: Document 06/20/21 16:40 [facility] (Rec: 06/20/21 18:15 [facility] [id number]) Shoulder Strength Shoulder Manual Muscle Testing Right Flexion 4 Good Extension 4 Good Abduction (C5) 4 Good External Rotation 4- Good- Internal Rotation 4+ Good+ Left Flexion 4- Good- Extension 4- Good- Abduction (C5) 4- Good- External Rotation 3 Fair Internal Rotation 3+ Fair+ Elbow/Forearm Strength Elbow and Forearm Manual Muscle Testing Right Flexion (C6) 5 Normal Extension (C7) 5 Normal Left Flexion (C6) 5 Normal Extension (C7) 5 Normal PT-OP-Q Treatments Start: 06/16/21 17:48 Freq: Status: Active Protocol: Document 07/21/21 08:52 MA (Rec: 07/21/21 09:47 MA [id number]) Cardio Equipment Upper Body Ergometer (UBE) Duration (Minutes) 6 Seat Position 11 Height 4.5 Other fwd/back Therapeutic Exercises Supine Exercises serratus punch Side bilateral Equipment Used 3# Reps/Minutes 15 Sidelying Exercises abd Sidelying Exercise Name TO 90 Side bilateral Equipment Used 2LB Reps/Minutes 2x10 Sitting Exercises chin tucks Reps/Minutes 10 Standing Exercises ER Side bilateral Equipment Used L1 Reps/Minutes 2x10 Habd Side bilateral Equipment Used L1 Reps/Minutes 15 Comments cues for scap motion ext Side bilateral Equipment Used L3 Reps/Minutes 2x10 IR Standing Exercise Name at side Side bilateral Equipment Used L3 Reps/Minutes 2x10 isometrics Standing Exercise Name flex, ER,abd Side bilateral Reps/Minutes 5 sec x5 ea Manual Therapy Treatment Soft Tissue Mobilization post Body Location L teres, lats,rhomboids Mobilization Type Rolling,Strumming Intensity/Depth Moderate Body Position Sidelying pec Body Location L pec, bicep Mobilization Type Rolling,Strumming Intensity/Depth Moderate Body Position Supine Comments w/rot PT-OP-T Assessment and Plan Start: 06/16/21 17:48 Freq: Status: Active Protocol: Document 07/21/21 08:52 MA (Rec: 07/21/21 09:47 MA [id number]) Physical Therapy Assessment Goals activities Short Term Goal (STG) Pt will be able to lay on shoulder w/o inc pain STG Duration 08/18/21 Hardware Technician Goal (LTG) pt will be david to do BUE lift and not feel like she has to only use RUE when lifting at work. LTG Duration 09/20/21 ROM Short Term Goal (STG) Ptw ill be able to hold UEs in air for extended time for ADLs and w/concerts w/o inc pain B STG Duration 07/21/21 Group Home Goal (LTG) Pt will have full B shoulder AROM w/o inc pain. LTG Duration 08/20/21 strength Short Term Goal (STG) Pt will be indep w/HEP STG Duration 07/21/21 Group Home Goal (LTG) pt will have 5/5 BUE MMT and at least 4/5 EFT to show improved shoulder stability to improve pt abilityt o do her typical daily activties w/o pain. LTG Duration 09/20/21 Assessment Summary Assessment Pt requires heavy cues for scap positioning during IR/ER and minor cues during all other exercises for depression of scap. She feels she has more stability since starting therapy and less pain. Pt is able to get L shd to ~160 degrees flexion today before feeling any pain. Krissy would continue to benefit from therapy for increasing jaimee shoulder strength & stability to decrease risk of future dislocations. Physical Therapy Plan Frequency and Duration Frequency of Treatment 1-2x/week Duration of Treatment 3 months Plan of Care Start Date 06/20/21 Plan of Care End Date 09/20/21 Therapeutic Interventions Therapeutic Interventions Home Exercise Program,Joint Mobilizations,Manual Therapy, Neuromuscular Re-education, Patient/Caregiver Education, Self-Care/Home Management,Soft Tissue Mobilization,Taping, Therapeutic Activities, Therapeutic Exercises Modalities Cold Pack/Ice Massage,Electric Stimulation,Hot Packs, Infrared Therapy,Ultrasound Next Visit Focus/Plan Next Note Type Treatment Note Next Visit Plan cont to advance scap stability and work on RC strength & stability, PNF & manual to improve ROM & scap position
--- NOTE | 2021-07-25 09:14 | PT.OTN ---
Current Diagnoses Other instability, unspecified shoulder (07/25/21) Abnormal posture (07/25/21) Weakness (07/25/21) Physical Therapy Treatment Note PT-OP-A Visit Information Start: 06/16/21 17:48 Freq: Status: Active Protocol: Document 07/25/21 08:19 [facility] (Rec: 07/25/21 09:14 [facility] [id number]) Out-Patient Physical Therapy Visit Information Visit Information Visit Type Treatment Note Visit Note 24 visitsmax per year Visit Start Time 08:17 Visit Stop Time 08:48 Total Visit Minutes 41 Visit Number 6 Number of SEISMOGRAPH CHIEF Visits 0 PT-OP-B Current Condition Start: 06/16/21 17:48 Freq: Status: Active Protocol: Document 06/20/21 16:40 [facility] (Rec: 06/20/21 18:15 [facility] [id number]) Current Condition History of Current Condition Onset Date 2016 Current Complaints B shoulder instability, L pain History of Current Condition Pt reports she frayed her labrum, has arthritis and fractured her joint. First time dislocated shoulder, in 2016 she dislocated a shoulder but doesn't remember which one and had to go to the hospital for relocation. In April 2019, she dislocated both shoulders roller skating. Most recent, pt dislocated L shoulder [place] rolling in bed . She dislocated R shoulder in April and reached back to grab something from back seat when drivign and had to pull out operator to relocated shoulder. Even laying on L shoulder hurts. 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 D/t this, she thinks she will wait until the end of the year. She reports she gets ant dislocations and mostly often w/flex and ER. She reports she has to overall be more cautious and cannot put bra on. Pt was at a concert this weekend and couldn't raise her arms overhead. Pt was at a reptile show June 12 and had pain in scap and friend cracked that area and it helped then got better after couple hours. Occ neck pain especially with a lot of desk work. Treatment Goals Patient/Caregiver Goals Have full motion of shoulder again, know what is happening to hurt it, be able to not have to be so careful PT-OP-C Subjective Start: 06/16/21 17:48 Freq: Status: Active Protocol: Document 07/25/21 08:19 [facility] (Rec: 07/25/21 09:14 [facility] [id number]) OP-PT Subjective Patient Comments Patient Comments Pt reports shoulder is feeling more stable and pain is a lot less. PT-OP-F Manual Assessment Start: 06/16/21 17:48 Freq: Status: Active Protocol: Document 06/20/21 16:40 [facility] (Rec: 06/20/21 18:15 [facility] [id number]) Manual Assessments Soft Tissue Assessment Soft Tissue Mobility Assessment tenderness to L pec, infraspinatus, parascap mm, AC jt, biceps tendon, scalenes, UT, LS PT-OP-J Posture/Palpation/Skin Start: 06/16/21 17:48 Freq: Status: Active Protocol: Document 06/20/21 16:40 [facility] (Rec: 06/20/21 18:15 [facility] [id number]) Posture Evaluation [facility] Postural Classification System [facility] Postural Classifications Posterior/Anterior Elbow Flexion Test 0 Comments Posture Comments humerus ant in glenoid L>R, scap b ant tipped and abd, fwd head, inc kyphosis mostly at upper thoracic PT-OP-K Range of Motion Start: 06/16/21 17:48 Freq: Status: Active Protocol: Document 06/20/21 16:40 [facility] (Rec: 06/20/21 18:15 [facility] [id number]) Shoulder Goniometric Range of Motion Shoulder Right Active Flexion 164 Extension 60 Abduction 167 External Rotation at 0 degrees Abduction 65 Internal Rotation Behind Back (text) T6 Left Active Flexion 139 Extension 50 Abduction 155 External Rotation at 0 degrees Abduction 34 PT-OP-L Special Tests Start: 06/16/21 17:48 Freq: Status: Active Protocol: Document 06/20/21 16:40 [facility] (Rec: 06/20/21 18:15 [facility] [id number]) Special Tests Neural Special Tests- Upper Body Radial Nerve Tension Test Results neg L Median Nerve Tension Test Results mild positive L Ulnar Nerve Tension Test Results neg L PT-OP-M Strength Start: 06/16/21 17:48 Freq: Status: Active Protocol: Document 06/20/21 16:40 [facility] (Rec: 06/20/21 18:15 [facility] [id number]) Shoulder Strength Shoulder Manual Muscle Testing Right Flexion 4 Good Extension 4 Good Abduction (C5) 4 Good External Rotation 4- Good- Internal Rotation 4+ Good+ Left Flexion 4- Good- Extension 4- Good- Abduction (C5) 4- Good- External Rotation 3 Fair Internal Rotation 3+ Fair+ Elbow/Forearm Strength Elbow and Forearm Manual Muscle Testing Right Flexion (C6) 5 Normal Extension (C7) 5 Normal Left Flexion (C6) 5 Normal Extension (C7) 5 Normal PT-OP-Q Treatments Start: 06/16/21 17:48 Freq: Status: Active Protocol: Document 07/25/21 08:19 [facility] (Rec: 07/25/21 09:14 [facility] [id number]) Cardio Equipment Upper Body Ergometer (UBE) Duration (Minutes) 5 Seat Position 11 Height 4.5 Other fwd/back Therapeutic Exercises Supine Exercises serratus punch Side bilateral Equipment Used 3# Reps/Minutes 15 Prone Exercises over tball Prone Exercise Name 1. Habd 2. ext 3. row Side bilateral Equipment Used 1. 2lb 2,3. 3 lb Reps/Minutes 12 ea Sidelying Exercises abd Sidelying Exercise Name TO 90 Side bilateral Equipment Used 3LB Reps/Minutes 15 Standing Exercises ER Side bilateral Equipment Used L2 Reps/Minutes 15 Habd Side bilateral Equipment Used L2 Reps/Minutes 15 Comments cues for scap motion ext Side bilateral Equipment Used L4 Reps/Minutes 2x10 Manual Therapy Treatment Soft Tissue Mobilization sup Body Location B UT, LS, scalenes (R>L) Mobilization Type Rolling,Strumming Intensity/Depth Moderate post Body Location R teres, lats,rhomboids, traps Mobilization Type Rolling,Strumming Intensity/Depth Moderate Body Position Sidelying pec Body Location R>L pec, bicep Mobilization Type Rolling,Strumming Intensity/Depth Moderate Body Position Supine Comments w/rot Joint Mobilizations scap Joint B Direction med, inf, rotations GH Joint b Direction post FM Grade II PT-OP-T Assessment and Plan Start: 06/16/21 17:48 Freq: Status: Active Protocol: Document 07/25/21 08:19 [facility] (Rec: 07/25/21 09:14 [facility] [id number]) Physical Therapy Assessment Goals activities Short Term Goal (STG) Pt will be able to lay on shoulder w/o inc pain STG Duration 08/18/21 Penitentiary Goal (LTG) pt will be david to do BUE lift and not feel like she has to only use RUE when lifting at work. LTG Duration 09/20/21 ROM Short Term Goal (STG) Ptw ill be able to hold UEs in air for extended time for ADLs and w/concerts w/o inc pain B STG Duration 07/21/21 Penitentiary Goal (LTG) Pt will have full B shoulder AROM w/o inc pain. LTG Duration 08/20/21 strength Short Term Goal (STG) Pt will be indep w/HEP STG Duration 07/21/21 Dental Technologist Goal (LTG) pt will have 5/5 BUE MMT and at least 4/5 EFT to show improved shoulder stability to improve pt abilityt o do her typical daily activties w/o pain. LTG Duration 09/20/21 Assessment Summary Assessment Pt able to tolerate progression of strengthening and is showing improved stability and improved mechanics w/movements and exercise. Improved scap mobility for depression on R after manul. Physical Therapy Plan Frequency and Duration Frequency of Treatment 1-2x/week Duration of Treatment 3 months Plan of Care Start Date 06/20/21 Plan of Care End Date 09/20/21 Next Visit Focus/Plan Next Note Type Treatment Note Next Visit Plan cont to advance scap stability and work on RC strength & stability, PNF & manual to improve ROM & scap position
--- NOTE | 2021-08-01 09:00 | PT.OTN ---
Current Diagnoses Other instability, unspecified shoulder (08/01/21) Abnormal posture (08/01/21) Weakness (08/01/21) Physical Therapy Treatment Note PT-OP-A Visit Information Start: 06/16/21 17:48 Freq: Status: Active Protocol: Document 08/01/21 08:20 [facility] (Rec: 08/01/21 09:00 [facility] [id number]) Out-Patient Physical Therapy Visit Information Visit Information Visit Type Treatment Note Visit Start Time 08:17 Visit Stop Time 08:57 Total Visit Minutes 40 Visit Number 7 Number of EQUIPMENT OILER Visits 0 PT-OP-B Current Condition Start: 06/16/21 17:48 Freq: Status: Active Protocol: Document 06/20/21 16:40 [facility] (Rec: 06/20/21 18:15 [facility] [id number]) Current Condition History of Current Condition Onset Date 2016 Current Complaints B shoulder instability, L pain History of Current Condition Pt reports she frayed her labrum, has arthritis and fractured her joint. First time dislocated shoulder, in 2016 she dislocated a shoulder but doesn't remember which one and had to go to the hospital for relocation. In April 2019, she dislocated both shoulders roller skating. Most recent, pt dislocated L shoulder [place] rolling in bed . She dislocated R shoulder in April and reached back to grab something from back seat when drivign and had to boat puller to relocated shoulder. Even laying on L shoulder hurts. 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 D/t this, she thinks she will wait until the end of the year. She reports she gets ant dislocations and mostly often w/flex and ER. She reports she has to overall be more cautious and cannot put bra on. Pt was at a concert this weekend and couldn't raise her arms overhead. Pt was at a reptile show June 12 and had pain in scap and friend cracked that area and it helped then got better after couple hours. Occ neck pain especially with a lot of desk work. Treatment Goals Patient/Caregiver Goals Have full motion of shoulder again, know what is happening to hurt it, be able to not have to be so careful PT-OP-C Subjective Start: 06/16/21 17:48 Freq: Status: Active Protocol: Document 08/01/21 08:20 [facility] (Rec: 08/01/21 09:00 [facility] [id number]) OP-PT Subjective Patient Comments Patient Comments Pt no issues and feels like she can reach more. PT-OP-F Manual Assessment Start: 06/16/21 17:48 Freq: Status: Active Protocol: Document 06/20/21 16:40 [facility] (Rec: 06/20/21 18:15 [facility] [id number]) Manual Assessments Soft Tissue Assessment Soft Tissue Mobility Assessment tenderness to L pec, infraspinatus, parascap mm, AC jt, biceps tendon, scalenes, UT, LS PT-OP-J Posture/Palpation/Skin Start: 06/16/21 17:48 Freq: Status: Active Protocol: Document 06/20/21 16:40 [facility] (Rec: 06/20/21 18:15 [facility] [id number]) Posture Evaluation [facility] Postural Classification System [facility] Postural Classifications Posterior/Anterior Elbow Flexion Test 0 Comments Posture Comments humerus ant in glenoid L>R, scap b ant tipped and abd, fwd head, inc kyphosis mostly at upper thoracic PT-OP-K Range of Motion Start: 06/16/21 17:48 Freq: Status: Active Protocol: Document 06/20/21 16:40 [facility] (Rec: 06/20/21 18:15 [facility] [id number]) Shoulder Goniometric Range of Motion Shoulder Right Active Flexion 164 Extension 60 Abduction 167 External Rotation at 0 degrees Abduction 65 Internal Rotation Behind Back (text) T6 Left Active Flexion 139 Extension 50 Abduction 155 External Rotation at 0 degrees Abduction 34 PT-OP-L Special Tests Start: 06/16/21 17:48 Freq: Status: Active Protocol: Document 06/20/21 16:40 [facility] (Rec: 06/20/21 18:15 [facility] [id number]) Special Tests Neural Special Tests- Upper Body Radial Nerve Tension Test Results neg L Median Nerve Tension Test Results mild positive L Ulnar Nerve Tension Test Results neg L PT-OP-M Strength Start: 06/16/21 17:48 Freq: Status: Active Protocol: Document 06/20/21 16:40 [facility] (Rec: 06/20/21 18:15 [facility] [id number]) Shoulder Strength Shoulder Manual Muscle Testing Right Flexion 4 Good Extension 4 Good Abduction (C5) 4 Good External Rotation 4- Good- Internal Rotation 4+ Good+ Left Flexion 4- Good- Extension 4- Good- Abduction (C5) 4- Good- External Rotation 3 Fair Internal Rotation 3+ Fair+ Elbow/Forearm Strength Elbow and Forearm Manual Muscle Testing Right Flexion (C6) 5 Normal Extension (C7) 5 Normal Left Flexion (C6) 5 Normal Extension (C7) 5 Normal PT-OP-Q Treatments Start: 06/16/21 17:48 Freq: Status: Active Protocol: Document 08/01/21 08:20 [facility] (Rec: 08/01/21 09:00 [facility] [id number]) Cardio Equipment Upper Body Ergometer (UBE) Duration (Minutes) 5 Seat Position 11 Height 5 Other fwd/back Therapeutic Exercises Supine Exercises serratus punch Side bilateral Equipment Used 3# Reps/Minutes 15 Prone Exercises over tball Prone Exercise Name 1. Habd 2. ext 3. row Side bilateral Equipment Used 1. 2lb 2,3. 3 lb Reps/Minutes 12 ea Sidelying Exercises abd Sidelying Exercise Name TO 90 Side bilateral Equipment Used 3LB Reps/Minutes 15 Standing Exercises ER Side bilateral Equipment Used L2 Reps/Minutes 15 Habd Side bilateral Equipment Used L2 Reps/Minutes 15 Comments cues for scap motion wall posture Standing Exercise Name wall roll up w/B shoulder ext Side bilateral Reps/Minutes 1 min ext Side bilateral Equipment Used L4 Reps/Minutes 15 IR Standing Exercise Name at side Side bilateral Equipment Used L3 Reps/Minutes 15 Manual Therapy Treatment Soft Tissue Mobilization inf Body Location ayden. lats L Mobilization Type Rolling,Strumming,Sustained Pressure Intensity/Depth Moderate sup Body Location B UT, LS, scalenes (R>L) Mobilization Type Rolling,Strumming Intensity/Depth Moderate post Body Location R rhomboids, traps Mobilization Type Rolling,Strumming Intensity/Depth Moderate Body Position Sidelying pec Body Location R>L pec, bicep Mobilization Type Rolling,Strumming Intensity/Depth Moderate Body Position Supine Comments w/rot Joint Mobilizations scap Joint B Direction med, inf, rotations GH Joint L Direction post FM Grade II PT-OP-T Assessment and Plan Start: 06/16/21 17:48 Freq: Status: Active Protocol: Document 08/01/21 08:20 [facility] (Rec: 08/01/21 09:00 [facility] [id number]) Physical Therapy Assessment Goals activities Short Term Goal (STG) Pt will be able to lay on shoulder w/o inc pain STG Duration 08/18/21 Half-Way Goal (LTG) pt will be david to do BUE lift and not feel like she has to only use RUE when lifting at work. LTG Duration 09/20/21 ROM Short Term Goal (STG) Ptw ill be able to hold UEs in air for extended time for ADLs and w/concerts w/o inc pain B STG Duration 07/21/21 Half-Way Goal (LTG) Pt will have full B shoulder AROM w/o inc pain. LTG Duration 08/20/21 strength Short Term Goal (STG) Pt will be indep w/HEP STG Duration 07/21/21 Name Plate Stamper Goal (LTG) pt will have 5/5 BUE MMT and at least 4/5 EFT to show improved shoulder stability to improve pt abilityt o do her typical daily activties w/o pain. LTG Duration 09/20/21 Assessment Summary Assessment Pt did well with exercises w/ min cueing for scap. She is improving w/ROM and Passively had some limits w/IR and flex/ abd on R taht improved w/less pain after manul. Physical Therapy Plan Frequency and Duration Frequency of Treatment 1-2x/week Duration of Treatment 3 months Plan of Care Start Date 06/20/21 Plan of Care End Date 09/20/21 Next Visit Focus/Plan Next Note Type Progress Note Next Visit Plan possible DC if pt doing well.
--- NOTE | 2021-08-25 10:33 | PT.OTN ---
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 First time dislocated shoulder, in 2016 she dislocated a shoulder but doesn't remember which one and had to go to the hospital for relocation. In April 2019, she dislocated both shoulders roller skating. Most recent, pt dislocated L shoulder in Mar rolling in bed . 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 Even laying on L shoulder hurts. 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 D/t this, she thinks she will wait until the end of the year. She reports she gets ant dislocations and mostly often w/flex and ER. She reports she has to overall be more cautious and cannot put bra on. Pt was at a concert this weekend and couldn't raise her arms overhead. Pt was at a reptile show June 12 and had pain in scap and friend cracked that area and it helped then got better after couple hours. Occ neck pain especially with a lot of desk work. Treatment Goals Patient/Caregiver Goals Have full motion of shoulder again, know what is happening to hurt it, be able to not have to be so careful PT-OP-C Subjective Start: 06/16/21 17:48 Freq: Status: Active Protocol: Document 08/25/21 09:52 [facility] (Rec: 08/25/21 10:20 [facility] [id number]) OP-PT Subjective Patient Comments Patient Comments Pt did okay on her trip and at work alone for a week. Can reach behind and unclasp her bra now. Its doable and does not hurt PT-OP-F Manual Assessment Start: 06/16/21 17:48 Freq: Status: Active Protocol: Document 06/20/21 16:40 [facility] (Rec: 06/20/21 18:15 [facility] [id number]) Manual Assessments Soft Tissue Assessment Soft Tissue Mobility Assessment tenderness to L pec, infraspinatus, parascap mm, AC jt, biceps tendon, scalenes, UT, LS PT-OP-J Posture/Palpation/Skin Start: 06/16/21 17:48 Freq: Status: Active Protocol: Document 08/25/21 09:52 [facility] (Rec: 08/25/21 10:20 [facility] [id number]) Posture Evaluation [facility] Postural Classification System Elbow Flexion Test 4 PT-OP-K Range of Motion Start: 06/16/21 17:48 Freq: Status: Active Protocol: Document 08/25/21 09:52 [facility] (Rec: 08/25/21 10:20 [facility] [id number]) Shoulder Goniometric Range of Motion Shoulder Right Active Flexion 178 Extension 69 Abduction 180 External Rotation at 0 degrees Abduction 75 Internal Rotation Behind Back (text) T5 Left Active Flexion 173 Extension 75 Abduction 180 External Rotation at 0 degrees Abduction 79 Internal Rotation Behind Back (text) T7 PT-OP-L Special Tests Start: 06/16/21 17:48 Freq: Status: Active Protocol: Document 06/20/21 16:40 [facility] (Rec: 06/20/21 18:15 [facility] [id number]) Special Tests Neural Special Tests- Upper Body Radial Nerve Tension Test Results neg L Median Nerve Tension Test Results mild positive L Ulnar Nerve Tension Test Results neg L PT-OP-M Strength Start: 06/16/21 17:48 Freq: Status: Active Protocol: Document 08/25/21 09:52 [facility] (Rec: 08/25/21 10:20 [facility] [id number]) Shoulder Strength Shoulder Manual Muscle Testing Right Flexion 5 Normal Extension 5 Normal Abduction (C5) 5 Normal External Rotation 5 Normal Internal Rotation 5 Normal Horizontal Abduction 5 Normal Horizontal Adduction 5 Normal Left Flexion 5 Normal Extension 5 Normal Abduction (C5) 5 Normal Adduction 5 Normal External Rotation 5 Normal Internal Rotation 5 Normal Horizontal Abduction 5 Normal Horizontal Adduction 5 Normal PT-OP-Q Treatments Start: 06/16/21 17:48 Freq: Status: Active Protocol: Document 08/25/21 09:52 [facility] (Rec: 08/25/21 10:20 [facility] [id number]) Cardio Equipment Upper Body Ergometer (UBE) Duration (Minutes) 5 Seat Position 11 Height 5 Other fwd/back Therapeutic Exercises Supine Exercises serratus punch Side bilateral Equipment Used 3# Reps/Minutes 15 Prone Exercises over tball Prone Exercise Name 1. Habd 2. ext 3. row 4. scaption Side bilateral Equipment Used 1. 2lb 2&3. 3 lb 4. 2lb Reps/Minutes 12 ea Sidelying Exercises abd Sidelying Exercise Name TO 90 Side bilateral Equipment Used 3LB Reps/Minutes 15 Standing Exercises ER Side bilateral Equipment Used L2 Reps/Minutes 15 Habd Side bilateral Equipment Used L2 Reps/Minutes 15 Comments cues for scap motion ext Side bilateral Equipment Used L4 Reps/Minutes 20 IR Standing Exercise Name at side Side bilateral Equipment Used L3 Reps/Minutes 15 Manual Therapy Treatment Soft Tissue Mobilization sup Body Location B UT, LS, scalenes (R>L) Mobilization Type Rolling,Strumming Intensity/Depth Moderate PT-OP-T Assessment and Plan Start: 06/16/21 17:48 Freq: Status: Active Protocol: Document 08/25/21 09:52 [facility] (Rec: 08/25/21 10:20 [facility] [id number]) Physical Therapy Assessment Goals activities Short Term Goal (STG) Pt will be able to lay on shoulder w/o inc pain STG Duration achieved Alf Goal (LTG) pt will be david to do BUE lift and not feel like she has to only use RUE when lifting at work. LTG Duration achieved ROM Short Term Goal (STG) Ptw ill be able to hold UEs in air for extended time for ADLs and w/concerts w/o inc pain B STG Duration achieved Licensed Embalmer Supervisor Goal (LTG) Pt will have full B shoulder AROM w/o inc pain. LTG Duration achieved strength Short Term Goal (STG) Pt will be indep w/HEP STG Duration achieved Alf Goal (LTG) pt will have 5/5 BUE MMT and at least 4/5 EFT to show improved shoulder stability to improve pt abilityt o do her typical daily activties w/o pain. LTG Duration achieved Assessment Summary Assessment Pt did well with all exercises w/occ cues for no scap elevation during exercises and contorl w/eccentric. Pt has met all goals so DC at this time. Physical Therapy Plan Discharge Physical Therapy Discharge Reasons Goals Met
== END 2021-08-29 11:02 ==
LOC: PHYS 09:45
PROVIDERS: Family Provider Family Medicine; PCP Family Medicine; Referring Provider Orthopaedic Surgery; Visit Provider Orthopaedic Surgery
DX: M25.319 Other instability, unspecified shoulder (principal); R53.1 Weakness; R29.3 Abnormal posture
CPT/HCPCS: 97110; 97140; 97163; 97535

== ENCOUNTER → 2022-09-28 16:35 | Outpatient (CLI) | payer OTHER, SELFPAY ==
[2022-09-28 18:44] LABS: Rubella Antibody IgG 17.9 IU/mL (>15)
[2022-09-30 08:09] LABS: Rubeola Measles IgG 19.3 AU/mL (Immune >16.4); Varicella IgG Antibody <135 index (Immune >165)
[2022-10-01 09:58] LABS: Mumps Virus IgG Antibody 81.7 AU/mL (Immune >10.9)
[2022-10-02 10:23] LABS: Hepatitis Be Antibody Negative (Negative)
[2022-10-02 12:44] LABS: QuantiFERON Mitogen Value >10.00 IU/mL (.); QuantiFERON TB Gold Plus Negative (Negative); QuantiFERON TB1 Ag Value 0.23 IU/mL (.); QuantiFERON TB2 Ag Value 0.24 IU/mL (.)
== END ==
PROVIDERS: Family Provider Family Medicine; PCP Family Medicine; Referring Provider Family Medicine; Visit Provider Family Medicine
DX: Z23 Encounter for immunization (principal)
CPT/HCPCS: 36415; 86480; 86707; 86735; 86762; 86765; 86787

== ENCOUNTER → 2022-12-01 12:28 | Outpatient (CLI) | payer OTHER, SELFPAY ==
[2022-12-02 02:14] LABS: Hepatitis B Surface Antigen NEGATIVE s/c (NEGATIVE)
== END ==
PROVIDERS: Family Provider Family Medicine; PCP Family Medicine; Referring Provider Family Medicine; Visit Provider Family Medicine
DX: Z72.51 High risk heterosexual behavior (principal)
CPT/HCPCS: 36415; 87340

== ENCOUNTER → 2022-12-04 16:13 | Outpatient (CLI) | payer OTHER, SELFPAY ==
[2022-12-07 08:13] LABS: Hepatitis Be Antibody Negative (Negative)
== END ==
PROVIDERS: Family Provider Family Medicine; PCP Family Medicine; Visit Provider Family Medicine
DX: Z23 Encounter for immunization (principal)
CPT/HCPCS: 86707

== ENCOUNTER → 2022-12-22 10:40 | Outpatient (CLI) | payer OTHER, SELFPAY ==
[2022-12-23 15:10] LABS: Hepatitis B Core Antibody Negative (Negative)
== END ==
PROVIDERS: Family Provider Family Medicine; PCP Family Medicine; Referring Provider Family Medicine; Visit Provider Family Medicine
DX: Z01.84 Encounter for antibody response examination (principal)
CPT/HCPCS: 36415; 86704

== ENCOUNTER → 2022-12-29 11:04 | Outpatient (CLI) | payer OTHER, SELFPAY ==
[2023-01-02 06:22] LABS: Hepatitis B Surf Ab Qualitativ Reactive (.)
== END ==
PROVIDERS: Family Provider Family Medicine; PCP Family Medicine; Referring Provider Family Medicine; Visit Provider Family Medicine
DX: Z01.84 Encounter for antibody response examination (principal)
CPT/HCPCS: 36415; 86706